=== PATIENT | female | born 1985 | race African-American/Black ===

== ENCOUNTER → 2016-10-30 | Outpatient (CLI) | payer OTHER ==
--- NOTE | 2016-10-30 10:46 | XR ---
EXAMINATION TYPE: XR elbow limited RT DATE OF EXAM: 10/30/2016 10:37 AM CLINICAL HISTORY: Right elbow pain for 3 days TECHNIQUE: Frontal and lateral images of the right elbow are obtained. COMPARISON: None FINDINGS: There is no acute fracture/dislocation evident in the right elbow. No abnormal fat pad si gns are seen. The overlying soft tissue appears unremarkable. IMPRESSION: Unremarkable study.
== END | disposition home or self-care (01) ==
LOC: RADXRMAIN 10:28
PROVIDERS: ATTEND Physician Assistant
DX: M25.521 Pain in right elbow (principal)

== ENCOUNTER → 2017-04-04 | Outpatient (CLI) | payer OTHER ==
--- NOTE | 2017-04-04 15:39 | US ---
EXAMINATION TYPE: US thyroid st tissue head/neck DATE OF EXAM: 04/04/2017 COMPARISON: Thyroid ultrasound December 23, 2015 CLINICAL HISTORY: E04.9 Goiter. Enlarged thyroid, left thyroidectomy GLAND SIZE: Right Lobe: 5.7 x 1.8 x 3.2 cm Overall Parenchyma: heterogenous Left Lobe: surgically removed Isthmus Thickness: 0.5 cm NODULES RIGHT: # of nodules measured on right: 0 LEFT: Surgically removed ISTHMUS: # of nodules measured in the isthmus: 0 Bilateral neck scanned, no evidence of lymphadenopathy. Enlarged heterogeneous right lobe with no distinct nodules seen on today's exam, left thyroidectomy, left thyroid bed appears wnl Heterogeneous enlarged right thyroid is redemonstrated. Left thyroid is surgically absent. No suspici ous new nodules are identified. IMPRESSION: Overall stable findings, heterogeneous enlarged remnant right thyroid. No suspicious new nodules seen .
== END | disposition home or self-care (01) ==
LOC: RADUSWWP 15:04
PROVIDERS: ATTEND Family Medicine
DX: E04.9 Nontoxic goiter, unspecified (principal)
CPT/HCPCS: 76536

== ENCOUNTER → 2018-09-25 | Outpatient (CLI) | payer BC, OTHER ==
--- NOTE | 2018-09-25 09:10 | US ---
EXAMINATION TYPE: US thyroid st tissue head/neck DATE OF EXAM: 09/25/2018 COMPARISON: US 04/04/17, 12/23/15 CLINICAL HISTORY: E04.1 Goiter Non Toxic. Patient feels pressure in neck. Difficulty swallowing. GLAND SIZE: Right Lobe: 5.7 x 2.9 x 2.1 cm Overall Parenchyma: heterogenous Left Lobe: Surgically absent cm Isthmus: 0.8 cm, Heterogeneous texture. NODULES RIGHT: # of nodules measured on right: 0 LEFT: # of nodules measured on left: 0 ISTHMUS: # of nodules measured in the isthmus: 0 Bilateral neck scanned, no evidence of lymphadenopathy. IMPRESSION: 1. Changes of left-sided thyroidectomy. 2. Enlargement and heterogeneity right thyroid lobe.
[2018-09-25 09:13] LABS: HCT 39.9 % (34.0-46.0); HGB 13.3 gm/dL (11.4-16.0); MCH 30.4 pg (25.0-35.0); MCHC 33.2 g/dL (31.0-37.0); MCV 91.4 fL (80.0-100.0); Mean Platelet Volume 8.2; Platelet Count 211 k/uL (150-450); RBC 4.37 m/uL (3.80-5.40); RDW 13.4 % (11.5-15.5); WBC 6.1 k/uL (3.8-10.6)
[2018-09-25 12:45] LABS: ALT 29 U/L (9-52); AST 17 U/L (14-36); Albumin 3.9 g/dL (3.5-5.0); Alkaline Phosphatase 48 U/L (38-126); Anion Gap 6 mmol/L; Blood Urea Nitrogen 12 mg/dL (7-17); Calcium 9.3 mg/dL (8.4-10.2); Carbon Dioxide 26 mmol/L (22-30); Chloride 109 mmol/L (98-107); Glucose 100 mg/dL (74-99); Potassium 4.5 mmol/L (3.5-5.1); Sodium 141 mmol/L (137-145); Total Bilirubin 0.3 mg/dL (0.2-1.3); Total Protein 6.9 g/dL (6.3-8.2)
[2018-09-25 20:51] LABS: ACTH 29.5 pg/mL (0.00-45.99)
== END | disposition home or self-care (01) ==
LOC: RADUSWWP 08:23
PROVIDERS: ATTEND Internal Medicine Endocrinology, Diabetes & Metabolism
DX: E04.1 Nontoxic single thyroid nodule (principal); R53.83 Other fatigue; Z90.89 Acquired absence of other organs
CPT/HCPCS: 36415; 76536; 80053; 82024; 82533; 82607; 84146; 84439; 84443; 84481; 85027

== ENCOUNTER → 2019-09-05 | Outpatient (CLI) | payer BC, OTHER ==
--- NOTE | 2019-09-05 15:08 | FL ---
EXAMINATION TYPE: FL hysterosalpingography DATE OF EXAM: 09/05/2019 HISTORY: Infertility. Abnormal menstrual cycles. TECHNIQUE: 10 cc of Isovue-370 was utilized. 48 seconds of fluoroscopy time was utilized with 6 image s saved. Informed consent was obtained and all the patient's questions were answered. Preprocedural timeout wa s performed. Preliminary film of the pelvis reveals no distinct abnormality. A speculum was introduc ed and the external cervical os was localize. The external cervical os was cleansed and a Betadine s olution on 3 occasions. Hysterosalpingography catheter was introduced into the uterus and balloon in sufflation device deployed. Approximately 10 cc of nonionic contrast was injected in a retrograde ma nner. The uterus has a normal size shape and appearance. No persistent uterine filling defects are seen. Both fallopian tubes fill with contrast normally. There is spill of contrast into the peritoneal cav ity bilaterally left greater than right. IMPRESSION: Normal hysterosalpingogram with bilateral spill of contrast into the peritoneal cavity.
== END ==
LOC: RADUSWWP 13:33
PROVIDERS: ATTEND Obstetrics & Gynecology Reproductive Endocrinology
DX: Z31.41 Encounter for fertility testing (principal)
CPT/HCPCS: 58340; 74740; Q9967

== ENCOUNTER 2019-10-26 18:07 | Observation (INO) | payer BC ==
[2019-10-26] MEDS ORDERED: SODIUM CHLORIDE 0.9% 1,000 ML IV STA (18:33)
--- NOTE | 2019-10-26 18:33 | ED ---
Chest Pain HPI - General Chief Complaint: Chest Pain Stated Complaint: CHEST PAIN Time Seen by Provider: 10/26/19 18:26 Source: patient, RN notes reviewed, old records reviewed Mode of arrival: wheelchair Limitations: no limitations - History of Present Illness Initial Comments: This is a 34-year-old female DF percent on for chest pain left side chest pain patient is holding her left side of her chest. Patient feels that she has heavy pressure sitting on her chest with shortness of breath. Symptoms a few hours prior to arrival nonpersistent. Patient has a strong family history of heart disease but she herself has no high blood pressure or cholesterol she does have a history of smoking. Otherwise no travel history or sick contacts and history of DVT or PE. No cough or congestion currently MD Complaint: chest pain -: hour(s) Onset: during rest, during exertion Pain Location: substernal, left chest Pain Radiation: LUE Severity: mild Severity scale (1-10): 3 Quality: aching, heaviness Consistency: constant Improves With: nothing Worsens With: nothing Anginal Symptoms: dyspnea Treatments Prior to Arrival: none - Related Data Home Medications Medication Instructions Recorded Confirmed ALPRAZolam [Xanax] 1 tab PO DIRECTED PRN 07/13/14 12/12/15 Hydrocodone/Acetaminophen [[place] 1 tab PO Q6HR PRN 12/12/15 12/12/15 7.5-325] Allergies Allergy/AdvReac Type Severity Reaction Status Date / Time latex Allergy Rash/Hives Verified 10/26/19 18:14 Review of Systems ROS Statement: Those systems with pertinent positive or pertinent negative responses have been documented in the HPI. ROS Other: All systems not noted in ROS Statement are negative. EKG Findings - EKG Comments: EKG Findings:: EKG shows sinus rhythm, NJ 170, QRS 80, QTC 418. Repeat. EKG shows sinus rhythm rate of 74, NJ 172, QRS 90, QTc 424 no change in morphology. Repeat. EKG shows sinus rhythm at 74, NJ 172, QRS 92, QTC 437 Past Medical History Past Medical History: Asthma, Thyroid Disorder Additional Past Medical History / Comment(s): MISSED , back pain, knee pain History of Any Multi-Drug Resistant Organisms: None Reported Past Surgical History: Section, Orthopedic Surgery Additional Past Surgical History / Comment(s): right knee, thryoidectomy Past Anesthesia/Blood Transfusion Reactions: Motion Sickness Past Psychological History: Anxiety Smoking Status: Current every day smoker Past Alcohol Use History: None Reported Past Drug Use History: None Reported General Exam Limitations: no limitations General appearance: alert, in no apparent distress Head exam: Present: atraumatic, normocephalic, normal inspection Eye exam: Present: normal appearance, PERRL, EOMI. Absent: scleral icterus, conjunctival injection, periorbital swelling ENT exam: Present: normal exam, mucous membranes moist Neck exam: Present: normal inspection. Absent: tenderness, meningismus, lymphadenopathy Respiratory exam: Present: normal lung sounds bilaterally. Absent: respiratory distress, wheezes, rales, rhonchi, stridor Cardiovascular Exam: Present: regular rate, normal rhythm, normal heart sounds. Absent: systolic murmur, diastolic murmur, rubs, gallop, clicks GI/Abdominal exam: Present: soft, normal bowel sounds. Absent: distended, tenderness, guarding, rebound, rigid Extremities exam: Present: normal inspection, full ROM, normal capillary refill. Absent: tenderness, pedal edema, joint swelling, calf tenderness Back exam: Present: normal inspection Neurological exam: Present: alert, oriented X3, CN II-XII intact Psychiatric exam: Present: normal affect, normal mood Skin exam: Present: warm, dry, intact, normal color. Absent: rash Course Vital Signs 10/26/19 18:11 Temperature 97.8 F Pulse Rate 97 Respiratory 18 Rate Blood Pressure 166/90 O2 Sat by Pulse 96 Oximetry - Reevaluation(s) Reevaluation #1: 10/26/19 20:35 Medical record review of Reevaluation #2: 10/26/19 20:35 Chest pain is persisting here in the ER - Consultations Consultation #1: Dr. Lucero who is agreeable for admission Chest Pain MDM - MDM 34 female here for evaluation of typical chest pain left-sided chest pain with heaviness. Patient suffers from morbid obesity and smoking no other known cardiac risk factors aside from family history. Patient be admitted for cardiac observation Disposition Clinical Impression: Chest pain Disposition: ADMITTED IP TO THIS HOSP Condition: Undetermined Instructions (If sedation given, give patient instructions): Chest Pain (ED) Is patient prescribed a controlled substance at d/c from ED?: No Referrals: Eugene Lucero MD [Primary Care Provider] - 1-2 days
[2019-10-26 18:57] LABS: Basophils # (A) 0.1 k/uL (0-0.2); Basophils % (A) 1 %; Eosinophils # (A) 0.3 k/uL (0-0.7); Eosinophils % (A) 4 %; HCT 40.2 % (34.0-46.0); Lymphocytes # (A) 2.8 k/uL (1.0-4.8); Lymphocytes % (A) 35 %; MCH 29.5 pg (25.0-35.0); MCHC 32.3 g/dL (31.0-37.0); MCV 91.5 fL (80.0-100.0); Mean Platelet Volume 8.9; Monocytes # (A) 0.3 k/uL (0-1.0); Monocytes % (A) 4 %; Neutrophils # (A) 4.4 k/uL (1.3-7.7); Neutrophils % (A) 55 %; Platelet Count 202 k/uL (150-450); RBC 4.39 m/uL (3.80-5.40)
[2019-10-26 19:04] LABS: Albumin 4.7 g/dL (3.5-5.0); Calcium 10.1 mg/dL (8.4-10.2); Magnesium 1.9 mg/dL (1.6-2.3); Total Bilirubin 0.5 mg/dL (0.2-1.3)
[2019-10-26 19:13] LABS: D-Dimer 0.27 mg/L FEU (<0.60)
--- NOTE | 2019-10-26 19:27 | XR ---
EXAMINATION TYPE: XR chest 2V DATE OF EXAM: 10/26/2019 COMPARISON: 12/05/2016 INDICATION: Chest pain TECHNIQUE: Frontal and lateral views of the chest are obtained. FINDINGS: The heart size is normal. The pulmonary vasculature is normal. The lungs are clear. IMPRESSION: 1. No acute pulmonary process.
[2019-10-26] MEDS ORDERED: NITROGLYCERIN SL TABS 0.4 MG TAB SUBLINGUAL PRN (20:27)
[2019-10-26] MEDS ORDERED: HEPARIN SODIUM,PORCINE 5,000 UNIT/ML 1 ML VIAL IV ONE (20:27)
[2019-10-26] MEDS ORDERED: HEPARIN SODIUM,PORCINE 5,000 UNIT/ML 1 ML VIAL IV PRN (20:27)
[2019-10-26] MEDS ORDERED: ASPIRIN 81 MG PO STA (20:27)
[2019-10-26] MEDS ORDERED: HEPARIN SOD,PORK IN 0.45% NACL 25,000 UNIT in 0.45% NACL 1 250ML.BAG IV SCH (20:30)
[2019-10-26 21:52] VITALS: RESP 18
[2019-10-26] MEDS: MORPHINE SULFATE 4 MG/ML SYRINGE IVP PRN (22:28)
[2019-10-27] MEDS: MORPHINE SULFATE 4 MG/ML SYRINGE IVP PRN ×2 (03:29→09:24)
[2019-10-27 07:01] LABS: Mean Platelet Volume 9.3; Platelet Count 207 k/uL (150-450)
[2019-10-27 07:18] LABS: Cholesterol 202 mg/dL (<200); HDL Cholesterol 41 mg/dL (40-60); LDL Cholesterol,Calculated 117 mg/dL (0-99); Triglycerides 222 mg/dL (<150)
[2019-10-27] MEDS ORDERED: ASPIRIN 325 MG TAB PO SCH (09:00)
[2019-10-27] MEDS ORDERED: ONDANSETRON 4 MG/2 ML VIAL IVP PRN (09:22)
[2019-10-27] MEDS ORDERED: KETOROLAC 30 MG/ML 1 ML VIAL IVP STA (10:32)
--- NOTE | 2019-10-27 11:50 | P.CRDCN ---
History of Present Illness History of present illness: HISTORY OF PRESENTING ILLNESS This is a pleasant 34-year-old male past medical history significant for asthma, chronic nicotine dependence and obesity. 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 We have been asked to see in consultation for chest pain. She states for the last week or so she has been experiencing upper respiratory congestion and cough. She worked yesterday without difficulty or chest pain. After getting home from work she developed an intense pain in the left precordial region described as an excrutiating tightness. There was no radiation to the arm, back, neck or jaw. She denies associated shortness of breath, dizziness, palpitations, nausea, vomiting or diaphoresis. She states the pain was so intense she felt like she was going to pass out. She was given morphine that did relieve her pain initially however the pain came back. She is having ongoing, reproducible pain at the time of my exam. DIAGNOSTICS EKG reveals sinus mechanism with no acute ST or T-wave abnormalities. Chest xray negative for an acute process. Laboratory reviewed, CBC unremarkable, d-dimer 0.27, sodium 140, potassium 4.0, creatinine 0.98, magnesium 1.9, cardiac enzymes negative x3, NTproBNP less than 11, LDL 117. She takes no daily cardiac medications. REVIEW OF SYSTEMS At the time of my exam: CONSTITUTIONAL: Denies fever or chills. CARDIOVASCULAR: Complains of pleuritic chest pain. Denies shortness of breath, orthopnea, PND or palpitations. RESPIRATORY: Denies cough. GASTROINTESTINAL: Denies abdominal pain, diarrhea, constipation, nausea or vomiting. MUSCULOSKELETAL: Denies myalgias. NEUROLOGIC: Denies numbness, tingling or weakness. ENDOCRINE: Denies fatigue, weight change, polydipsia or polyurina. GENITOURINARY: Denies burning, hematuria or urgency with micturation. HEMATOLOGIC: Denies history of anemia or bleeding. PHYSICAL EXAMINATION Blood pressure 128/67 heart rate 60 afebrile and maintaining oxygen saturation on room air. CONSTITUTIONAL: No apparent distress. Obese. HEENT: Head is normocephalic. Pupils are equal, round. Sclerae anicteric. Mucous membranes of the mouth are moist. No JVD. No carotid bruit. CHEST EXAMINATION: Lungs are clear to auscultation. No chest wall tenderness is noted on palpation or with deep breathing. HEART EXAMINATION: Regular rate and rhythm. S1, S2 heard. Faint systolic e jection murmur at the base, no gallops or rub. ABDOMEN: Soft, nontender. Positive bowel sounds. EXTREMITIES: 2+ peripheral pulses, no lower extremity edema and no calf tenderness. NEUROLOGIC EXAMINATION: Patient is awake, alert and oriented x3. ASSESSMENT Chest pain, atypical. An acute event has been ruled out. Chronic nicotine dependence Obese, BMI 36 PLAN An acute coronary event has been ruled out. Give one dose of toradol 30 mg IV now. Obtain 2D echocardiogram and doppler study to assess cardiac structure and function. Perform stress echocardiogram and doppler study to assess for stress induced ischemia. If stress test is normal she is stable from a cardiac perspective. Smoking cessation recommend and lifestyle modifications for lowering of LDL cholesterol to include diet and exercise. Thank you kindly for this consultation. Nurse Practitioner note has been reviewed, I agree with a documented findings and plan of care. Patient was seen and examined. Past Medical History Past Medical History: Asthma, Thyroid Disorder Additional Past Medical History / Comment(s): [place], back pain, knee pain History of Any Multi-Drug Resistant Organisms: None Reported Past Surgical History: Section, Orthopedic Surgery Additional Past Surgical History / Comment(s): right knee, thryoidectomy Past Anesthesia/Blood Transfusion Reactions: Motion Sickness Smoking Status: Current every day smoker - Past Family History Mother Family Medical History: Asthma Father Family Medical History: Unable to Obtain Medications and Allergies Home Medications Medication Instructions Recorded Confirmed Type Aspirin EC [Ecotrin Low Dose] 162 mg PO ONCE PRN 10/27/19 10/27/19 History Allergies Allergy/AdvReac Type Severity Reaction Status Date / Time latex Allergy Rash/Hives Verified 10/27/19 08:12 Physical Exam Vitals: Vital Signs Temp Pulse Pulse Resp BP BP Pulse Ox 10/27/19 07:52 97.7 F 60 18 128/67 100 10/27/19 04:00 97.7 F 75 18 138/74 98 10/27/19 03:49 18 10/26/19 23:44 97.8 F 87 18 138/71 96 10/26/19 23:25 18 10/26/19 21:51 98.1 F 84 18 152/84 95 10/26/19 21:10 141/88 10/26/19 20:59 82 16 150/93 96 10/26/19 18:11 97.8 F 97 18 166/90 96 Intake and Output 10/26/19 10/27/19 10/27/19 22:59 06:59 14:59 Intake Total 68.356 Balance 68.356 Intake: Intake, IV Titration 68.356 Amount Heparin Sod,Pork in 0.45% 68.356 NaCl 25,000 unit In 0.45 % NaCl 1 250ml.bag @ 8.8 UNITS/KG/HR 9.979 mls/hr IV .Q24H [facility] Rx#: [id number] Other: # Voids 1 Weight 113.398 kg Results 10/27/19 06:38 10/26/19 18:24 Cardiac Enzymes 10/26/19 10/26/19 10/27/19 Range/Units 18:24 18:24 00:51 AST 29 (14-36) U/L Troponin I <0.012 <0.012 (0.000-0.034) ng/mL 10/27/19 Range/Units 06:38 AST (14-36) U/L Troponin I <0.012 (0.000-0.034) ng/mL Coagulation 10/26/19 10/27/19 Range/Units 18:24 03:29 PT 11.0 (9.0-12.0) sec APTT 27.0 31.0 H (22.0-30.0) sec Lipids 10/27/19 Range/Units 06:38 Triglycerides 222 H (<150) mg/dL Cholesterol 202 H (<200) mg/dL HDL Cholesterol 41 (40-60) mg/dL CBC 10/26/19 10/27/19 Range/Units 18:24 06:38 WBC 8.0 (3.8-10.6) k/uL RBC 4.39 (3.80-5.40) m/uL Hgb 13.0 (11.4-16.0) gm/dL Hct 40.2 (34.0-46.0) % Plt Count 202 207 (150-450) k/uL Comprehensive Metabolic Panel 10/26/19 Range/Units 18:24 Sodium 140 (137-145) mmol/L Potassium 4.0 (3.5-5.1) mmol/L Chloride 105 (98-107) mmol/L Carbon Dioxide 25 (22-30) mmol/L BUN 13 (7-17) mg/dL Creatinine 0.98 (0.52-1.04) mg/dL Glucose 94 (74-99) mg/dL Calcium 10.1 (8.4-10.2) mg/dL AST 29 (14-36) U/L ALT 21 (4-34) U/L Alkaline Phosphatase 67 (38-126) U/L Total Protein 8.0 (6.3-8.2) g/dL Albumin 4.7 (3.5-5.0) g/dL Current Medications Generic Name Dose Route Start Last Admin Trade Name Freq PRN Reason Stop Dose Admin Aspirin 325 mg 10/27/19 09:00 Aspirin PO DAILY [facility] Heparin Sodium (Porcine) 0 unit 10/26/19 20:27 Heparin IV Q6HR PRN Low PTT Protocol Morphine Sulfate 4 mg 10/26/19 22:22 10/27/19 03:29 Morphine Sulfate (Inj) IVP 4 mg Q4HR PRN Administration Pain Nitroglycerin 0.4 mg 10/26/19 20:27 Nitrostat SUBLINGUAL Q5M PRN Chest Pain Intake and Output 10/26/19 10/27/19 10/27/19 22:59 06:59 14:59 Intake Total 68.356 Balance 68.356 Intake: Intake, IV Titration 68.356 Amount Heparin Sod,Pork in 0.45% 68.356 NaCl 25,000 unit In 0.45 % NaCl 1 250ml.bag @ 8.8 UNITS/KG/HR 9.979 mls/hr IV .Q24H [facility] Rx#: [id number] Other: # Voids 1 Weight 113.398 kg 10/27/19 06:38 10/26/19 18:24
--- NOTE | 2019-10-27 12:12 | ECHOF ---
Referral Reason:cp MEASUREMENTS -------- HEIGHT: 175.3 cm WEIGHT: 113.4 kg BP: 120/60 RVIDd: 3.2 cm (< 3.3) IVSd: 1.7 cm (0.6 - 1.1) LVIDd: 3.8 cm (3.9 - 5.3) LVPWd: 2.0 cm (0.6 - 1.1) IVSs: 2.6 cm LVIDs: 1.4 cm LVPWs: 2.6 cm Ao Diam: 2.8 cm (2.0 - 3.7) AV Cusp: 2.1 cm (1.5 - 2.6) LA Diam: 4.0 cm (2.7 - 3.8) MV EXCURSION: 15.279 mm (> 18.000) MV EF SLOPE: 71 mm/s (70 - 150) EPSS: 0.4 cm MV E Naresh: 1.11 m/s MV DecT: 203 ms MV A Naresh: 0.61 m/s MV E/A Ratio: 1.82 RAP: 5.00 mmHg RVSP: 48.73 mmHg FINDINGS -------- Sinus rhythm. This was a technically difficult study with suboptimal apical views. The left ventricular size is normal. There is severe concentric left ventricular hypertrophy. The re is normal global left ventricular contractility. Overall left ventricular systolic function is n ormal with, an EF between 65 - 70 %. The diastolic filling pattern is normal for the age of the pat ient 11.34. The right ventricle is normal in size. The left atrium is mildly dilated. The right atrial size is normal. Interatrial and interventricular septum intact. The aortic valve is trileaflet and appears structurally normal. There is no evidence of aortic regu rgitation. There is no evidence of aortic stenosis. There is trace mitral regurgitation. Khol-ea-[id number] tricuspid regurgitation present. There is mild to moderate pulmonary hypertension. The right ventricular systolic pressure, as measured by Doppler, is 48.73mmHg. Trace/mild (physiologic) pulmonic regurgitation. The aortic root size is normal. IVC Not well visulized. There is no pericardial effusion. CONCLUSIONS -------- 1. Sinus rhythm. 2. This was a technically difficult study with suboptimal apical views. 3. The left ventricular size is normal. 4. There is severe concentric left ventricular hypertrophy. 5. There is normal global left ventricular contractility. 6. Overall left ventricular systolic function is normal with, an EF between 65 - 70 %. 7. The diastolic filling pattern is normal for the age of the patient 11.34 8. The right ventricle is normal in size. 9. The left atrium is mildly dilated. 10. The right atrial size is normal. 11. Interatrial and interventricular septum intact. 12. The aortic valve is trileaflet and appears structurally normal. 13. There is no evidence of aortic regurgitation. 14. There is no evidence of aortic stenosis. 15. There is trace mitral regurgitation. 16. Tbqt-zq-avpvlkjf tricuspid regurgitation present. 17. There is mild to moderate pulmonary hypertension. 18. The right ventricular systolic pressure, as measured by Doppler, is 48.73mmHg. 19. Trace/mild (physiologic) pulmonic regurgitation. 20. The aortic root size is normal. 21. IVC Not well visulized. 22. There is no pericardial effusion. [employer] QUALITY TECHNICIAN: Opal Guillermo RDCS
[2019-10-27 12:20] LABS: T4, Free (Free Thyroxine) 0.94 ng/dL (0.78-2.19)
[2019-10-27 12:35] VITALS: BP 138/85; PULSE 78; TEMP 97.9
--- NOTE | 2019-10-27 14:15 | ECHOS ---
STRESS ECHOCARDIOGRAM INDICATIONS: Chest pain. MEDICATIONS: None. BASELINE HEART RATE: 73 BASELINE BLOOD PRESSURE: 113/58 MAXIMUM HEART RATE: 159 MAXIMUM BLOOD PRESSURE: 191/78 85% MPHR: 156 100% MPHR: 184 METS: 9.3 MAXIMUM STAGE REACHED: 3 TOTAL EXERCISE TIME: 7:45 CLINICAL INFORMATION: Patient was exercised for a total period of 8 minutes. The peak heart rate of 159 was achieved. Maximum blood pressure of 191/78 mmHg was noted. Resting EKG shows normal sinus rhythm with normal AK interval and QRS duration and normal ST-T waves. No ST- segment depression suggestive of ischemia is noted. The baseline echocardiographic images reveals normal left ventricular chamber size with normal left ventricular systolic function in the immediate postexercise period. Normal increase in the wall thickness and contractility is noted. FINAL IMPRESSION: This stress echocardiographic study is negative for stress-induced ischemia. EKG portion of the stress test is not suggestive of ischemia. Patient's exercise tolerance is normal. MMODL / IJN: [id number] /
--- NOTE | 2019-10-28 15:50 | P.HPIM ---
History of Present Illness H&P Date: 10/27/19 HISTORY AND PHYSICAL AND DISCHARGE SUMMARY: This is a 34-year-old -I[place]ian female patient of Dr. Lucero is followed in at least 3 years. She has a past medical history significant for thyroid disorder, mild stable asthma not on medications, generalized anxiety disorder, tobacco use and dependence. The patient has history of developing a cramping in the left side of her chest laterally that was a pulsating feeling that continued to get tighter. She states it occurred while she was working at a [employer]. She also had pain in her shoulder blade and back area. She states the pain was so severe that she thought she was lacking out. She told her boyfriend give her baby aspirin which she took. Patient came into [facility] emergency center for evaluation. Troponins were negative. Triglycerides 222, cholesterol 202, LDL 117, HDL 41. TSH 0.109, free T4 0.94. Patient was placed on the observation unit and seen in consultation by cardiology. Stress echocardiogram which was negative and patient was cleared for discharge home. Review of Systems Constitutional: Denies chills, Denies fatigue, Denies fever, Denies lethargy, Denies malaise, Denies poor appetite, Denies weakness Eyes: denies blurred vision, denies pain Ears, nose, mouth and throat: Denies dysphagia, Denies headache, Denies nasal congestion, Denies nasal discharge, Denies sore throat, Denies vertigo Cardiovascular: Reports chest pain, Denies dyspnea on exertion, Denies lightheadedness, Denies palpitations, Denies shortness of breath, Denies syncope Respiratory: Denies cough, Denies cough with sputum, Denies dyspnea, Denies excessive sputum, Denies hemoptysis, Denies home oxygen, Denies respiratory infections, Denies wheezing Gastrointestinal: Denies abdominal pain, Denies diarrhea, Denies loss of appetite, Denies nausea, Denies vomiting Genitourinary: Denies difficulty voiding, Denies dysuria, Denies hematuria, Denies urgency, Denies urinary frequency Musculoskeletal: Denies frequent falls, Denies gait dysfunction, Denies muscle weakness, Denies myalgias Integumentary: Denies pruritus, Denies rash, Denies wounds Neurological: Denies change in mentation, Denies change in speech, Denies numbness, Denies weakness Psychiatric: Denies anxiety, Denies depression Endocrine: Denies fatigue, Denies weight change Past Medical History Past Medical History: Asthma, Thyroid Disorder Additional Past Medical History / Comment(s): miscarrage, back pain, knee pain History of Any Multi-Drug Resistant Organisms: None Reported Past Surgical History: Section, Orthopedic Surgery Additional Past Surgical History / Comment(s): right knee, thryoidectomy Past Anesthesia/Blood Transfusion Reactions: Motion Sickness Smoking Status: Current every day smoker Additional Past Alcohol Use History / Comment(s): Patient is a smoker of one half pack per day. She denies any marijuana, illicit drug use, alcohol abuse. - Past Family History Mother Family Medical History: Asthma Additional Family Medical History / Comment(s): Mother is alive at age 57 with history of a heart murmur. Father Family Medical History: Unable to Obtain Additional Family Medical History / Comment(s): Patient does not know anything about her father. Brother(s) Additional Family Medical History / Comment(s): Patient has 3 brothers and one brother has sickle cell trait. Patient does not have any sisters. Patient has 1 son 10 years old with no major medical problems. Medications and Allergies Home Medications Medication Instructions Recorded Confirmed Type Aspirin EC [Ecotrin Low Dose] 162 mg PO ONCE PRN 10/27/19 10/27/19 History Atorvastatin Calcium [Lipitor] 20 mg PO HS #30 tab 10/27/19 Rx Allergies Allergy/AdvReac Type Severity Reaction Status Date / Time latex Allergy Rash/Hives Verified 10/27/19 08:12 Physical Exam Vitals: Vital Signs Temp Pulse Pulse Resp BP BP Pulse Ox 10/27/19 07:52 97.7 F 60 18 128/67 100 10/27/19 04:00 97.7 F 75 18 138/74 98 10/27/19 03:49 18 10/26/19 23:44 97.8 F 87 18 138/71 96 10/26/19 23:25 18 10/26/19 21:51 98.1 F 84 18 152/84 95 10/26/19 21:10 141/88 10/26/19 20:59 82 16 150/93 96 10/26/19 18:11 97.8 F 97 18 166/90 96 Intake and Output 10/26/19 10/27/19 10/27/19 22:59 06:59 14:59 Intake Total 68.356 Balance 68.356 Intake: Intake, IV Titration 68.356 Amount Heparin Sod,Pork in 0.45% 68.356 NaCl 25,000 unit In 0.45 % NaCl 1 250ml.bag @ 8.8 UNITS/KG/HR 9.979 mls/hr IV .Q24H SURESH Rx#: [id number] Other: # Voids 1 Weight 113.398 kg Gen: This is a 34-year-old morbidly obese -Ivorian female. Patient is in bed and appears to be comfortable and in no acute distress. HEENT: Head is atraumatic, normocephalic. Pupils equal, round. Sclerae is anicteric. NECK: Supple. No JVD. No lymphadenopathy. No thyromegaly. LUNGS: Clear to auscultation. No wheezes or rhonchi. No intercostal retractions. HEART: Regular rate and rhythm. No murmur. ABDOMEN: Soft. Bowel sounds are present. No masses. No tenderness. EXTREMITIES: No pedal edema. No calf tenderness. Dorsalis pedis +2 bilaterally. NEUROLOGICAL: Patient is awake, alert and oriented x3. Cranial nerves 2 through 12 are grossly intact. Results CBC & Chem 7: 10/27/19 06:38 10/26/19 18:24 Labs: Abnormal Lab Results - Last 24 Hours (Table) 10/27/19 10/27/19 Range/Units 03:29 06:38 APTT 31.0 H (22.0-30.0) sec Triglycerides 222 H (<150) mg/dL Cholesterol 202 H (<200) mg/dL LDL Cholesterol, Calc 117 H (0-99) mg/dL Assessment and Plan Plan: 1. Chest pain, acute coronary syndrome ruled out. 2. History of mild stable asthma. 3. History of hypothyroidism. 4. Tobacco use and dependence. 5. Dyslipidemia. Patient started on Lipitor Patient placed on the observation unit. Discharge plan: home Impression and plan of care have been directed as dictated by the signing physician. Audra Godoy nurse practitioner acting as scribe for signing physician.
== END 2019-10-27 14:39 | disposition home or self-care (01) ==
LOC: EC 18:07 → 1SOBS 20:27
PROVIDERS: ADMIT Internal Medicine; ATTEND Internal Medicine
DX: R07.89 Other chest pain (principal); R06.02 Shortness of breath; F17.200 Nicotine dependence, unspecified, uncomplicated; E66.9 Obesity, unspecified; Z68.36 Body mass index [BMI] 36.0-36.9, adult; E78.5 Hyperlipidemia, unspecified; J45.20 Mild intermittent asthma, uncomplicated; E89.0 Postprocedural hypothyroidism; F41.9 Anxiety disorder, unspecified; Z82.49 Family history of ischemic heart disease and other diseases of the circulatory system; Z83.2 Family history of diseases of the blood and blood-forming organs and certain disorders involving the immune mechanism; Z79.891 Long term (current) use of opiate analgesic; Z79.899 Other long term (current) drug therapy; Z91.040 Latex allergy status
CPT/HCPCS: 96366 ×2; 96375 ×2; 96376 ×2; 96361; 96365; 99285; 36415; 93005; 93306; 93351; 85379; 84439; 83880; 80061; 80053; 84443; 83690; 83735; 84484 ×2; 85025; 85049; 85610; 85730 ×2; 71046; G0378 ×2; J2270 ×2; J1644 ×2; J2405; J1885

== ENCOUNTER → 2020-09-30 | Outpatient (CLI) | payer BC ==
[2020-09-30 14:45] VITALS: BP 152/96; PULSE 99; TEMP 98.1; BMI 45.9
--- NOTE | 2020-09-30 16:27 | P.HPBAR ---
Bariatric H&P - History & Physicial H&P Date: 09/30/20 History & Physicial: Visit/CC: initial clinic visit Patient initial contact: Initial weight: Initial weight in pounds: Height: 5 ft 9 in Initial BMI: Last weight: Current weight: 141.067 kg Current weight in pounds: 311.00 Current BMI: 45.9 [place] body weight (based on NIH guidelines): 65.771 kg Excess body weight loss: The patient is a 34 year-old F who presents for Bariatric Assessment. Patient presents today to discuss bariatric surgery. She is interested in sleeve gastrectomy. Patient was BMI of 45.9. Has suffered with her obesity for many years. Patient suffers from chronic reflux, sleep apnea, hypothyroidism. Previous surgical history includes knee D&C thyroid. No history of DVT or dysphagia in the past. Patient does admit to daily tobacco use. 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 Review of Systems The patient denies any acute changes in vision or hearing, no dysphagia or odynophagia, no chest pain or shortness of breath, no dysuria or hematuria, no headache, no runny nose, no rectal bleeding or melena, no unexplained weight loss Past Medical History Past Medical History: Asthma, Thyroid Disorder Additional Past Medical History / Comment(s): miscarrage, back pain, knee pain History of Any Multi-Drug Resistant Organisms: None Reported Past Surgical History: Section, Orthopedic Surgery Additional Past Surgical History / Comment(s): right knee, thryoidectomy Past Anesthesia/Blood Transfusion Reactions: Motion Sickness Past Psychological History: Anxiety Smoking Status: Current every day smoker Past Alcohol Use History: None Reported Additional Past Alcohol Use History / Comment(s): Patient is a smoker of one half pack per day. She denies any marijuana, illicit drug use, alcohol abuse. Past Drug Use History: None Reported - Past Family History Mother Family Medical History: Asthma Additional Family Medical History / Comment(s): Mother is alive at age 57 with history of a heart murmur. Father Family Medical History: Unable to Obtain Additional Family Medical History / Comment(s): Patient does not know anything about her father. Brother(s) Additional Family Medical History / Comment(s): Patient has 3 brothers and one brother has sickle cell trait. Patient does not have any sisters. Patient has 1 son 10 years old with no major medical problems. Surgical - Exam Vital Signs Temp Pulse BP 98.1 F 99 152/96 09/30/20 14:42 09/30/20 14:42 09/30/20 14:42 Physical exam: General: Well-developed, well-nourished HEENT: Normocephalic, sclerae nonicteric Abdomen: Nontender, nondistended Extremities: No edema Neuro: Alert and oriented Bariatric Assessment & Plan (1) Morbid obesity with BMI of 45.0-49.9, adult Narrative/Plan: 34 yo female with morbid obesity. Surgical and nonsurgical options discussed in detail. Patient understands that she will need to stop smoking before surgery. Will plan upper endoscopy 4-5 months from now. Patient will follow-up with me after her EGD to review the surgical consent form after that. Await supervised weight loss documentation from primary care physician. Risks and benefits of the surgical options reviewed along with the average expected weight loss. Patient understands and wishes to proceed. Status: Acute Bariatric Checklist Checklist: Plan: Checklist: EGD: 1. Hiatal hernia: 2. H. Pylori: HgbA1c: Vitamin D: Smoking: Current every day smoker Primary care physician referral: Psychiatry clearance: Cardiology clearance: Sleep study: Diet journal: VTE risk score: VTE risk level: Rehab needs at discharge:
== END | disposition home or self-care (01) ==
LOC: BARWHC3 13:51
PROVIDERS: ATTEND Surgery
DX: E66.01 Morbid (severe) obesity due to excess calories (principal); Z68.42 Body mass index [BMI] 45.0-49.9, adult
CPT/HCPCS: 99211

== ENCOUNTER → 2020-12-15 | Outpatient (CLI) | payer BC ==
[2020-12-16 03:25] LABS: African American GFR (CKD) 83.3 (60.0-200.0); Albumin 4.4 g/dL (3.80-4.90); Albumin/Globulin Ratio 1.63 (1.60-3.17); Anion Gap 8.4 mmol/L (4.00-12.00); Calcium 10.2 mg/dL (8.7-10.3); Carbon Dioxide 24.6 mmol/L (21.6-31.8); Globulin 2.7 g/dL (1.6-3.3); Non-African American GFR(CKD) 71.9 (60.0-200.0); Potassium 4.1 mmol/L (3.5-5.5); Total Bilirubin 0.4 mg/dL (0.3-1.2); Total Protein 7.1 g/dL (6.2-8.2)
[2020-12-16 03:45] LABS: Folate, Serum 11.6 ng/mL
[2020-12-16 04:40] LABS: HCT 41.8 % (37.2-46.3); HGB 13.6 g/dL (12.0-15.0); MCH 30.5 pg (27.0-32.0); MCHC 32.5 g/dL (32.0-37.0); MCV 93.7 fL (80.0-97.0); Mean Platelet Volume 13.3 fL (9.5-12.2); Platelet Count 218 X 10*3/uL (140-440); RBC 4.46 X 10*6/uL (4.10-5.20); RDW 12.8 % (11.5-14.5); WBC 7.66 X 10*3/uL (4.50-10.00)
[2020-12-16 08:15] LABS: Hemoglobin A1C 5.6 % (4.0-6.0)
== END ==
LOC: LABWHC1 15:51
PROVIDERS: ATTEND Surgery
DX: E55.9 Vitamin D deficiency, unspecified (principal); K90.89 Other intestinal malabsorption; E66.01 Morbid (severe) obesity due to excess calories
CPT/HCPCS: 36415; 80053; 82306; 82607; 82746; 83036; 83540; 84425; 85027; 93005

== ENCOUNTER 2021-03-29 09:33 | Day surgery (SDC) | payer BC ==
[2021-03-28 08:42] VITALS: BMI 38.4
[~2021-03-29 09:33] MED LIST: LACTATED RINGERS 1,000 ML IV SCH; LIDOCAINE 1% (10MG/ML) FOR IV START INTRADERMA PRN
[2021-03-29 10:33] VITALS: TEMP 97.8
[2021-03-29] MEDS ORDERED: PROPOFOL 10 MG/ML 20 ML VIAL IV ONE (10:53)
[2021-03-29] MEDS ORDERED: KETAMINE 10 MG/ML 20 ML VIAL ONE (10:53)
--- NOTE | 2021-03-29 10:56 | P.GSHP ---
History of Present Illness H&P Date: 03/29/21 Chief Complaint: GERD, presurgical Patient here today for upper endoscopy. Patient with chronic reflux. Being evaluated for sleeve gastrectomy. No dysphagia. Past Medical History Past Medical History: Asthma, Chest Pain / Angina, Hypertension, Osteoarthritis (OA), Sleep Apnea/CPAP/BIPAP, Thyroid Disorder Additional Past Medical History / Comment(s): Chronic back and knee pain, uses CPAP. History of Any Multi-Drug Resistant Organisms: None Reported Past Surgical History: Section, Orthopedic Surgery Additional Past Surgical History / Comment(s): Right knee surgery, thryoidectomy, D&C. Past Anesthesia/Blood Transfusion Reactions: Motion Sickness, Postoperative Nausea & Vomiting (PONV) Past Psychological History: Anxiety Smoking Status: Current some day smoker Past Alcohol Use History: None Reported Past Drug Use History: None Reported - Past Family History Mother Family Medical History: Asthma Additional Family Medical History / Comment(s): History of a heart murmur. Father Family Medical History: Unable to Obtain Additional Family Medical History / Comment(s): Patient does not know anything about her father. Brother(s) Additional Family Medical History / Comment(s): Patient has 3 brothers and one brother has sickle cell trait. Patient does not have any sisters. Patient has 1 son with no major medical problems. Medications and Allergies Home Medications Medication Instructions Recorded Confirmed Type Gabapentin 600 mg PO BID 03/11/21 03/29/21 History Ergocalciferol [Vitamin D2 (1250 1,250 mcg PO TU 03/28/21 03/28/21 History Mcg = [id number] Iu)] Varenicline Tartrate [Chantix 1 mg PO DIRECTED 03/28/21 03/29/21 History Continuing Pack] Allergies Allergy/AdvReac Type Severity Reaction Status Date / Time latex Allergy Rash/Hives Verified 03/29/21 10:06 artificial sweeteners Allergy Unknown Unknown Uncoded 03/29/21 10:06 Surgical - Exam Vital Signs Temp Pulse Resp BP Pulse Ox 97.8 F 67 18 107/70 98 03/29/21 10:19 03/29/21 10:19 03/29/21 10:19 03/29/21 10:19 03/29/21 10:19 Physical exam: General: Well-developed, well-nourished HEENT: Normocephalic, sclerae nonicteric Abdomen: Nontender, nondistended Extremities: No edema Neuro: Alert and oriented Assessment and Plan (1) GERD (gastroesophageal reflux disease) Narrative/Plan: Will proceed with upper endoscopy Current Visit: Yes Status: Acute Code(s): K21.9 - GASTRO-ESOPHAGEAL REFLUX DISEASE WITHOUT ESOPHAGITIS SNOMED Code(s): 773266728
--- NOTE | 2021-03-29 11:07 | P.PCN ---
Date of Procedure: 03/29/21 Procedure(s) Performed: Preoperative Dx: GERD Postoperative Dx: Mild gastritis Procedure: EGD with Bx Anesthesia: Sedation Endoscopist: Dr. Londono Specimens: Antrum Endoscopic Procedure: The patient was on the endoscopy table in the left decubitus position. The Olympus gastroscope was inserted into the oropharynx and passed under direct visualization to the region of the third portion of the duodenum. From that point the scope was slowly withdrawn inspecting all surfaces carefully. There were no neoplastic inflammatory or polypoid lesions throughout the duodenum. The pylorus was widely patent. The stomach was carefully inspected. There was mild gastritis present. A biopsy of the antrum took place to rule out H. pylori. Retroflexion revealed a normal hiatus. The esophagus was then carefully examined. There were no neoplastic inflammatory or polypoid lesions throughout the visualized esophagus. The patient was then taken to the recovery room in stable condition per anesthesia guidelines. Recommendations: Resume diet. Await biopsy results. Follow-up bariatric clinic.
[2021-03-29 11:16] VITALS: RESP 16
[2021-03-29 11:24] VITALS: BP 133/68; PULSE 72
== END 2021-03-29 11:40 | disposition home or self-care (01) ==
LOC: ORWHC2ENDO 09:33
PROVIDERS: ATTEND Surgery
DX: K21.9 Gastro-esophageal reflux disease without esophagitis (principal); K29.50 Unspecified chronic gastritis without bleeding; J45.909 Unspecified asthma, uncomplicated; M19.90 Unspecified osteoarthritis, unspecified site; G89.29 Other chronic pain; M54.9 Dorsalgia, unspecified; M25.569 Pain in unspecified knee; F41.9 Anxiety disorder, unspecified; Z88.5 Allergy status to narcotic agent; Z88.0 Allergy status to penicillin; Z88.6 Allergy status to analgesic agent; Z91.040 Latex allergy status; Z79.899 Other long term (current) drug therapy
CPT/HCPCS: 81025; 88305; 43239; J2704

== ENCOUNTER → 2021-04-04 | Outpatient (CLI) | payer BC ==
--- NOTE | 2021-04-04 11:35 | XR ---
EXAMINATION TYPE: XR KUB DATE OF EXAM: 04/04/2021 10:35 AM CLINICAL HISTORY: Left-sided flank pain for 2 weeks. TECHNIQUE: Two supine KUB images of the abdomen are obtained. COMPARISON: None. FINDINGS: Gas is seen in nondistended stomach. Scattered gas is seen in non-distended small bowel loo ps. Gas and fecal material is seen in non-distended colon. There is no visceromegaly or abnormal calc ification appreciated. The lung bases are clear and the osseous structures are intact. IMPRESSION: No definite nephrolithiasis. Overall nonobstructive bowel gas pattern.
== END | disposition home or self-care (01) ==
LOC: RADXRMAIN 09:57
PROVIDERS: ATTEND Internal Medicine
DX: N20.0 Calculus of kidney (principal)
CPT/HCPCS: 74018

== ENCOUNTER → 2021-04-05 | Outpatient (CLI) | payer BC ==
[2021-04-05 15:18] VITALS: BP 130/75; PULSE 70; RESP 16; TEMP 98.3; BMI 41.8
--- NOTE | 2021-04-05 21:34 | P.BASOAP ---
Subjective Progress Note Date: 04/05/21 Principal diagnosis: Morbid obesity Patient returns for bariatric evaluation. Underwent recent EGD on 03/29 showing minimal gastritis. Patient has stopped her smoking altogether at this point. She is on Chantix now. She has 1 more visit with her supervised weight loss. She has lost 28 pounds since her first evaluation here. Objective - Vital Signs Vital signs: Vital Signs Temp 98.3 F 04/05/21 15:15 Pulse 70 04/05/21 15:15 Resp 16 04/05/21 15:15 BP 130/75 04/05/21 15:15 Pulse Ox Intake & Output 04/05/21 04/05/21 04/06/21 06:59 18:59 06:59 Weight 128.367 kg - Exam Abdomen: Soft, nontender, nondistended Assessment/Plan (1) Morbid obesity with BMI of 45.0-49.9, adult Narrative/Plan: Patient remains interested in sleeve gastrectomy. Surgical risks and weight loss expectations again reviewed. She has 1 more visit with her primary care physician and has an upcoming dietary appointment as well. Following that we'll schedule. Plan: Date: 04/05/21 Initial Weight: 128.367 kg Initial BMI: 41.8 Current Weight: 128.367 kg Current BMI: 41.8 Type of Surgery: Total Volume in Band: Previous Volume: Volume Removed: Volume Added: Band Size:
== END ==
LOC: BARWHC3 14:41
PROVIDERS: ATTEND Surgery
DX: E66.01 Morbid (severe) obesity due to excess calories (principal); Z68.41 Body mass index [BMI] 40.0-44.9, adult; Z87.891 Personal history of nicotine dependence; Z91.040 Latex allergy status; Z91.018 Allergy to other foods
CPT/HCPCS: 99211

== ENCOUNTER → 2021-04-18 | Outpatient (CLI) | payer BC ==
[2021-04-18 12:08] VITALS: BMI 42.0
== END ==
LOC: BARWHC3 08:36
PROVIDERS: ATTEND Surgery
DX: E66.01 Morbid (severe) obesity due to excess calories (principal); Z71.3 Dietary counseling and surveillance; F17.200 Nicotine dependence, unspecified, uncomplicated; Z91.040 Latex allergy status; Z91.018 Allergy to other foods; Z68.41 Body mass index [BMI] 40.0-44.9, adult
CPT/HCPCS: 97804

== ENCOUNTER → 2021-05-18 | Outpatient (CLI) | payer BC ==
[2021-05-18 16:35] LABS: Basophils % (A) 1 %; Eosinophils # (A) 0.1 k/uL (0-0.7); Eosinophils % (A) 2 %; HGB 12.4 gm/dL (11.4-16.0); Lymphocytes # (A) 2.2 k/uL (1.0-4.8); Lymphocytes % (A) 46 %; MCH 30.4 pg (25.0-35.0); MCHC 33.5 g/dL (31.0-37.0); Mean Platelet Volume 8.2; Monocytes # (A) 0.2 k/uL (0-1.0); Monocytes % (A) 4 %; Neutrophils # (A) 2.2 k/uL (1.3-7.7); Neutrophils % (A) 45 %; Platelet Count 244 k/uL (150-450); RBC 4.07 m/uL (3.80-5.40); RDW 13.1 % (11.5-15.5); WBC 4.8 k/uL (3.8-10.6)
[2021-05-18 16:41] LABS: ALT 18 U/L (4-34); AST 25 U/L (14-36); African American GFR (CKD) >90 (>60 ml/min/1.73 sqM); Albumin 4.4 g/dL (3.5-5.0); Alkaline Phosphatase 46 U/L (38-126); Anion Gap 9 mmol/L; Blood Urea Nitrogen 16 mg/dL (7-17); Calcium 9.7 mg/dL (8.4-10.2); Carbon Dioxide 23 mmol/L (22-30); Chloride 104 mmol/L (98-107); Glucose 73 mg/dL (74-99); Non-African American GFR(CKD) >90 (>60 ml/min/1.73 sqM); Potassium 4.7 mmol/L (3.5-5.1); Sodium 136 mmol/L (137-145); Total Bilirubin 0.4 mg/dL (0.2-1.3)
== END | disposition home or self-care (01) ==
LOC: LABPAT 15:37
PROVIDERS: ATTEND Surgery
DX: Z01.812 Encounter for preprocedural laboratory examination (principal)
CPT/HCPCS: 36415; 80053; 85025

== ENCOUNTER 2021-05-23 09:55 | Inpatient (IN) | payer BC ==
[2021-05-30] MEDS ORDERED: ENOXAPARIN 40 MG/0.4 ML SYRINGE SQ PRN (05:00)
[2021-05-30] MEDS ORDERED: ceFAZolin 3 GM in SODIUM CHLORIDE 0.9% 100 ML IVPB PRN (05:00)
[2021-05-30] MEDS ORDERED: LIDOCAINE 1% (10MG/ML) FOR IV START INTRADERMA PRN (06:28)
[2021-05-30] MEDS ORDERED: ONDANSETRON 4 MG/2 ML VIAL IVP ONE ×2 (06:28→13:49)
[2021-05-30] MEDS ORDERED: DEXAMETHASONE SOD PHOSPHATE 4 MG/ML 1 ML VIAL IV ONE (06:28)
[2021-05-30] MEDS ORDERED: MIDAZOLAM 2 MG/2 ML VIAL IV PRN (06:28)
[2021-05-30] MEDS ORDERED: SCOPOLAMINE 1.5MG/72HR PATCH TRANSDERM ONE (10:22)
[2021-05-30] MEDS: LACTATED RINGERS 1,000 ML IV SCH (10:22)
--- NOTE | 2021-05-30 11:35 | P.GSHP ---
History of Present Illness H&P Date: 05/30/21 35-year-old female presents for elective laparoscopic sleeve gastrectomy. Patient was first seen in September of last year. Patient interested in surgical weight loss. Patient suffers from chronic reflux, sleep apnea, hypothyroidism. No history of DVT or dysphagia in the past. Patient is a previous smoker but quit in order to have the surgery performed. Recent EGD showed minimal gastritis. Past Medical History Past Medical History: Asthma, Chest Pain / Angina, Hypertension, Osteoarthritis (OA), Sleep Apnea/CPAP/BIPAP, Thyroid Disorder Additional Past Medical History / Comment(s): Chronic back and knee pain, uses CPAP. History of Any Multi-Drug Resistant Organisms: None Reported Past Surgical History: Section, Orthopedic Surgery Additional Past Surgical History / Comment(s): Right knee surgery, thryoidectomy, D&C. Past Anesthesia/Blood Transfusion Reactions: Motion Sickness, Postoperative Nausea & Vomiting (PONV) Smoking Status: Former smoker - Past Family History Mother Family Medical History: Asthma Additional Family Medical History / Comment(s): History of a heart murmur. Father Family Medical History: Unable to Obtain Additional Family Medical History / Comment(s): Patient does not know anything about her father. Brother(s) Additional Family Medical History / Comment(s): Patient has 3 brothers and one brother has sickle cell trait. Patient does not have any sisters. Patient has 1 son with no major medical problems. Medications and Allergies Home Medications Medication Instructions Recorded Confirmed Type Gabapentin 800 mg PO BID 03/11/21 05/30/21 History Albuterol Inhaler [Ventolin Hfa 1 puff INHALATION DAILY 05/19/21 05/30/21 History Inhaler] Allergies Allergy/AdvReac Type Severity Reaction Status Date / Time latex Allergy Rash/Hives Verified 05/19/21 11:23 artificial sweeteners Allergy Unknown Unknown Uncoded 05/19/21 11:23 Surgical - Exam Vital Signs Temp Pulse Resp BP Pulse Ox 97.1 F L 78 16 116/67 99 05/30/21 10:12 05/30/21 10:12 05/30/21 10:12 05/30/21 10:12 05/30/21 10:12 Physical exam: General: Well-developed, well-nourished HEENT: Normocephalic, sclerae nonicteric Abdomen: Nontender, nondistended Extremities: No edema Neuro: Alert and oriented Assessment and Plan (1) Morbid obesity with BMI of 45.0-49.9, adult Narrative/Plan: Will proceed with laparoscopic, possible open sleeve gastrectomy at this time. The risks of bleeding, infection, stenosis, stricture, leak, abscess, fistula formation, peritonitis, poor weight loss, reflux, vomiting, conversion to an open procedure, aborting sleeve gastrectomy, OR, PE, DVT, and were discussed. The patient understands and wishes to proceed. Current Visit: No Status: Acute Code(s): E66.01 - MORBID (SEVERE) OBESITY DUE TO EXCESS CALORIES; Z68.42 - BODY MASS INDEX [BMI] 45.0-49.9, ADULT SNOMED Code(s): 049665032
[2021-05-30] MEDS ORDERED: SUCCINYLCHOLINE CHLORIDE 100 MG/5 ML SYR IV ONE (11:59)
[2021-05-30] MEDS ORDERED: LIDOCAINE 1% INJ 10MG/ML (20 ML MDV) ONE (11:59)
[2021-05-30] MEDS ORDERED: ROCURONIUM 10 MG/ML (5 ML VIAL) IV ONE (11:59)
[2021-05-30] MEDS ORDERED: HYDROmorphone (PF) 1 MG/ML ONE (11:59)
[2021-05-30] MEDS ORDERED: fentaNYL (PF) 50 MCG/ML 2 ML AMP ONE (11:59)
[2021-05-30] MEDS ORDERED: PROPOFOL 10 MG/ML 20 ML VIAL IV ONE (11:59)
[2021-05-30] MEDS ORDERED: NEOSTIGMINE 1 MG/ML 10 ML VIAL ONE (11:59)
[2021-05-30] MEDS ORDERED: MIDAZOLAM 2 MG/2 ML VIAL ONE (11:59)
[2021-05-30] MEDS ORDERED: GLYCOPYRROLATE 0.2 MG/ML 2 ML VIAL ONE (11:59)
[2021-05-30] MEDS ORDERED: BUPIVACAINE (PF) 0.25% 30 ML VIAL SQ ONE ×2 (12:22)
[2021-05-30] MEDS ORDERED: LACTATED RINGERS 1,000 ML IV ONE ×3 (12:37→15:00)
[2021-05-30] MEDS ORDERED: METHYLENE BLUE 3 MG in DEXTROSE 5% IN WATER 500 ML IRRIGATION ONE ×2 (12:44)
[2021-05-30] MEDS ORDERED: ONDANSETRON 4 MG/2 ML VIAL ONE (13:44)
[2021-05-30] MEDS ORDERED: diphenhydrAMINE 50 MG/ML 1 ML VIAL IVP PRN (13:46)
[2021-05-30] MEDS ORDERED: NALOXONE 0.4 MG/ML 1 ML VIAL IV PRN (13:46)
--- NOTE | 2021-05-30 13:49 | P.OP ---
Date of Procedure: 05/30/21 Procedure(s) Performed: PREOPERATIVE DIAGNOSIS: Morbid obesity, GERD, sleep apnea POSTOPERATIVE DIAGNOSIS: Same PROCEDURE: Laparoscopic sleeve gastrectomy SURGEON: Spring EBL: Minimal ANESTHESIA: General COMPLICATIONS: None OPERATIVE PROCEDURE: Patient was placed in the operating table in the supine position. She was placed under general anesthesia at that time. The abdomen was prepped and draped in sterile fashion after the patient was placed in lithotomy. A 5 mm optical trocar was used to enter the abdominal cavity in the left upper quadrant. Insufflation took place to 15 millimeters mercury. An additional right subxiphoid 5 mm trocar was then placed under direct visualization and then removed. 2 additional 5 mm trochars were placed in the right upper quadrant and left upper quadrant under direct visualization and a 15 mm trocar in the supraumbilical location. The liver was retracted using a medium Ry liver retractor through the right subxiphoid trocar site. The hiatus was inspected. The patient had no visible hiatal hernia At that point I moved to the mid aspect of the greater curvature the stomach. The short gastric vasculature was divided using a LigaSure device proximally. I then switched and divided the short gastrics distally to a 3-4 cm from the pylorus. The dissection took place up to the left diaphragmatic crura at that point. The posterior short gastrics were likewise divided using the LigaSure device. Once the stomach was fully mobilized the blunt tipped 40-Jordanian bougie dilator was advanced into the stomach and advanced all the way to the prepyloric location. A black echelon 60 stapler with echelon Endopath staple line reinforcement was utilized and fired tangentially across the antrum taking care to avoid narrowing at the incisura angularis. Subsequent firings of the green echelon 60 stapler with echelon Endopath staple line reinforcement took place proximally staying on the outer edge of our dilator. 2-3 small areas of bleeding along the staple line were identified and clipped using a 12 mm clipper. The oral gastric tube was reinserted. The stomach was insufflated with approximately 100 mL of methylene blue. No evidence of leak or obstruction was seen. Tisseel fibrin glue was used along the length of the staple line. The stomach remnant was removed from the 15 mm trocar site without difficulty. The fascia at the 15 more site was closed using interrupted 0 Vicryl sutures with the laparoscopic suture passer and Chase Daphne technique. The insufflation was evacuated. The skin at all 5 incisions were closed using 4-0 Monocryl sutures. Skin glue was then applied. DISPOSITION: Stable to recovery room
[2021-05-30] MEDS: HYDROmorphone 0.5 MG/0.5 ML SYRINGE IVP PRN ×2 (14:10→14:33)
[2021-05-30] MEDS ORDERED: METOCLOPRAMIDE 5 MG/ML 2 ML VIAL ONE (15:11)
[2021-05-30] MEDS ORDERED: METOCLOPRAMIDE 5 MG/ML 2 ML VIAL IVP ONE (15:14)
[2021-05-30] MEDS: ACETAMINOPHEN IV (For NPO) 1,000 MG in EMPTY BAG 1 BAG IVPB SCH ×3 (17:04→23:34)
[2021-05-30] MEDS: ALBUTEROL NEBULIZED 2.5 MG/3 ML INHALATION SCH ×2 (17:39→21:15)
[2021-05-30] MEDS: 0.9% NACL WITH KCL 20 MEQ/L 1,000 ML IV SCH (17:49)
[2021-05-30] MEDS: ONDANSETRON 4 MG/2 ML VIAL IVP PRN ×2 (17:49→23:34)
[2021-05-30] MEDS: TRIMETHOBENZAMIDE 100 MG/ML 2 ML VIAL IM PRN (19:57)
[2021-05-30] MEDS: HYDROmorphone 1 MG/ML 1 ML SYRINGE IVP PRN (20:23)
[2021-05-30] MEDS: ENOXAPARIN 40 MG/0.4 ML SYRINGE SQ SCH (23:34)
[2021-05-31] MEDS: 0.9% NACL WITH KCL 20 MEQ/L 1,000 ML IV SCH ×2 (00:20→20:23)
[2021-05-31] MEDS: TRIMETHOBENZAMIDE 100 MG/ML 2 ML VIAL IM PRN ×2 (02:34→08:34)
[2021-05-31] MEDS: SIMETHICONE 40 MG/0.6 ML DROPS 2,000 MG/30 ML BOTTLE PO PRN ×3 (02:34→14:48)
[2021-05-31] MEDS: LACTATED RINGERS 1,000 ML IV SCH (04:20)
[2021-05-31] MEDS: ACETAMINOPHEN IV (For NPO) 1,000 MG in EMPTY BAG 1 BAG IVPB SCH ×4 (05:37→23:49)
[2021-05-31] MEDS: ENOXAPARIN 40 MG/0.4 ML SYRINGE SQ SCH ×2 (07:25→22:15)
[2021-05-31] MEDS: ONDANSETRON 4 MG/2 ML VIAL IVP PRN ×2 (07:25→20:26)
[2021-05-31] MEDS: PANTOPRAZOLE 40 MG/10 ML VIAL IV SCH (07:25)
[2021-05-31] MEDS: HYOSCYAMINE ORAL DROPS 1.875 MG/15 ML BOTTLE PO PRN ×2 (08:34→14:48)
[2021-05-31] MEDS: ALBUTEROL NEBULIZED 2.5 MG/3 ML INHALATION SCH ×4 (08:43→21:33)
[2021-05-31] MEDS: KETOROLAC 15 MG/ML 1 ML VIAL IVP SCH ×3 (09:05→20:25)
[2021-05-31] MEDS: 1: MVI, ADULT NO.4 WITH VIT K 10 ML, THIAMINE 100 MG, FOLIC ACID 1 MG, POTASSIUM CHLORID IV SCH ×12 (10:06→23:53)
[2021-05-31 11:04] LABS: Basophils # (A) 0.03 X 10*3/uL (0.00-0.10); Basophils % (A) 0.3 %; Eosinophils # (A) 0 X 10*3/uL (0.04-0.35); Eosinophils % (A) 0 %; HCT 38.1 % (37.2-46.3); HGB 12.4 g/dL (12.0-15.0); Lymphocytes # (A) 2.02 X 10*3/uL (0.90-5.00); Lymphocytes % (A) 19.8 %; MCH 29.5 pg (27.0-32.0); MCHC 32.5 g/dL (32.0-37.0); MCV 90.7 fL (80.0-97.0); Mean Platelet Volume 12.3 fL (9.5-12.2); Monocytes # (A) 0.97 X 10*3/uL (0.20-1.00); Monocytes % (A) 9.5 %; Neutrophils # (A) 7.13 X 10*3/uL (1.80-7.70); Platelet Count 228 X 10*3/uL (140-440); RDW 12.8 % (11.5-14.5); WBC 10.19 X 10*3/uL (4.50-10.00)
--- NOTE | 2021-05-31 11:28 | P.CONS ---
History of Present Illness - Reason for Consult Consult date: 05/31/21 medical management Requesting physician: Scooby Londono - History of Present Illness HISTORY OF PRESENT ILLNESS This is a 35-year-old female patient of Dr. Lucero with past medical history significant for mild intermittent asthma, hypertension not on medication, active tobacco use and dependence. The patient has been brought into the hospital under the care of Dr. Londono for laparoscopic sleeve gastrectomy. Patient is postop day #1. She states she's had some nausea and has some left-sided abdominal pain. She denies having any chest pain. She denies having any gas or burping. Blood pressure this morning is 138/98. Afebrile, heart rate 70s, pulse ox 90% on room air. REVIEW OF SYSTEMS Constitutional: No fever, no chills, no night sweats. No weight change. No weakness, fatigue or lethargy. No daytime sleepiness. EENT: No headache. No blurred vision or double vision, no loss of vision. No loss of Hearing, no ringing in the ears, no dizziness. No nasal drainage or congestion. No epistaxis. No sore throat. Lungs: No shortness of breath, cough, no sputum production. No wheezing. Cardiovascular: No chest pain, no lower extremity edema. No palpitations. No paroxysmal nocturnal dyspnea. No orthopnea. No lightheadedness or dizziness. No syncopal episodes. Abdominal: Reports abdominal pain. Reports nausea, no vomiting. No diarrhea. No constipation. No bloody or tarry stools.. No loss of appetite. Genitourinary: No dysuria, increased frequency, urgency. No urinary retention. Musculoskeletal: No myalgias. No muscle weakness, no gait dysfunction, no frequent falls. No back pain. No neck pain. Integumentary: No wounds, no lesions. No rash or pruritus. No unusual bruising. No change in hair or nails. Neurologic: No aphasia. No facial droop. No change in mentation. No head injury. No headache. No paralysis. No paresthesia. Psychiatric: No depression. No anxiety. No mood swings. Endocrine: No abnormal blood sugars. No weight change. MEDICAL HISTORY Mild intermittent asthma Hypertension Tobacco use and dependence Obesity SURGICAL HISTORY in 2008, arthroscopic knee surgery in 2013 D&C 2013 Thyroidectomy 2014 SOCIAL HISTORY Patient is a smoker of one half pack per day and quit 05/25/2021. She denies any marijuana, illicit drug use, alcohol abuse. FAMILY HISTORY Father is alive at age 55 with no major medical problems. Mother is alive at age 53 with asthma. Patient has 3 brothers and one has sickle cell and the other 2 brothers have no major medical problems. Patient has one son with no major medical problems. PHYSICAL EXAMINATION Gen: This is an obese 35-year-old -[place]ag[place] female. Patient is sitting on the edge of the bed and appears to be comfortable and in no acute distress. HEENT: Head is atraumatic, normocephalic. Pupils equal, round. Sclerae is anicteric. NECK: Supple. No JVD. No lymphadenopathy. No thyromegaly. LUNGS: Clear to auscultation. No wheezes or rhonchi. No intercostal retractions. HEART: First heart sound is depressed, second heart sound is normal, 2/6 systolic ejection murmur at the left sternal border, no S3 or S4. ABDOMEN: Soft. Bowel sounds are present. No masses. No tenderness. EXTREMITIES: No pedal edema. No calf tenderness. Dorsalis pedis +2 bilaterally. NEUROLOGICAL: Patient is awake, alert and oriented x3. Cranial nerves 2 through 12 are grossly intact. ASSESSMENT AND PLAN 1. Obesity status post laparoscopic sleeve gastrectomy, 05/30. Patient has had some postop nausea. Continue Zofran as needed, continue pain medications as needed. Upper GIs scheduled for today. 2. Mild intermittent asthma. Continue albuterol inhaler as needed. 3. Tobacco use and dependence. 4. DVT prophylaxis. Continue Lovenox 40 mg subcu every 12 hours. 5. GI prophylaxis. Continue Protonix 40 mg IV daily. DISCHARGE PLAN Home. Impression and plan of care have been directed as dictated by the signing physician. Audra Godoy nurse practitioner acting as scribe for signing physician. Past Medical History Past Medical History: Asthma, Chest Pain / Angina, Hypertension, Osteoarthritis (OA), Sleep Apnea/CPAP/BIPAP, Thyroid Disorder Additional Past Medical History / Comment(s): Chronic back and knee pain, uses CPAP. History of Any Multi-Drug Resistant Organisms: None Reported Past Surgical History: Section, Orthopedic Surgery Additional Past Surgical History / Comment(s): Right knee surgery, thryoidectomy, D&C. Past Anesthesia/Blood Transfusion Reactions: Motion Sickness, Postoperative Nausea & Vomiting (PONV) Smoking Status: Former smoker - Past Family History Mother Family Medical History: Asthma Additional Family Medical History / Comment(s): History of a heart murmur. Father Family Medical History: Unable to Obtain Additional Family Medical History / Comment(s): Patient does not know anything about her father. Brother(s) Additional Family Medical History / Comment(s): Patient has 3 brothers and one brother has sickle cell trait. Patient does not have any sisters. Patient has 1 son with no major medical problems. Medications and Allergies Home Medications Medication Instructions Recorded Confirmed Type Gabapentin 800 mg PO BID 03/11/21 05/30/21 History Albuterol Inhaler [Ventolin Hfa 1 puff INHALATION DAILY 05/19/21 05/30/21 History Inhaler] Allergies Allergy/AdvReac Type Severity Reaction Status Date / Time latex Allergy Rash/Hives Verified 05/19/21 11:23 artificial sweeteners Allergy Unknown Unknown Uncoded 05/19/21 11:23 Physical Exam Vitals: Vital Signs Temp Pulse Pulse Pulse Resp BP BP 05/31/21 02:37 98.5 F 71 18 174/81 05/30/21 23:48 05/30/21 19:22 98.7 F 91 18 176/95 05/30/21 17:50 99.4 F 98 18 187/81 05/30/21 17:38 05/30/21 16:45 87 16 156/71 05/30/21 16:15 86 16 158/80 05/30/21 15:45 79 16 154/84 05/30/21 15:15 77 16 158/80 05/30/21 14:53 84 16 161/66 05/30/21 14:38 77 16 157/78 05/30/21 14:23 81 18 142/63 05/30/21 14:08 68 16 157/70 05/30/21 13:53 81 16 159/71 05/30/21 13:38 97.4 F L 87 14 153/66 05/30/21 10:12 97.1 F L 78 16 116/67 Pulse Ox 05/31/21 02:37 97 05/30/21 23:48 95 05/30/21 19:22 97 05/30/21 17:50 93 L 05/30/21 17:38 98 05/30/21 16:45 100 05/30/21 16:15 100 05/30/21 15:45 100 05/30/21 15:15 96 05/30/21 14:53 96 05/30/21 14:38 95 05/30/21 14:23 95 05/30/21 14:08 98 05/30/21 13:53 97 05/30/21 13:38 98 05/30/21 10:12 99 Intake and Output 05/30/21 05/31/21 05/31/21 22:59 06:59 14:59 Intake Total 1050 Output Total 400 Balance 650 Intake: IV 1050 Output: Urine 400 Other: Voiding Method Toilet # Voids 3 Results CBC & Chem 7: 05/31/21 07:21
[2021-05-31 14:04] LABS: African American GFR (CKD) 94.7 (60.0-200.0); Anion Gap 9.3 mmol/L (4.00-12.00); Calcium 9.3 mg/dL (8.7-10.3); Carbon Dioxide 23.7 mmol/L (21.6-31.8); Magnesium 1.8 mg/dL (1.5-2.4); Non-African American GFR(CKD) 81.7 (60.0-200.0); Potassium 4.5 mmol/L (3.5-5.5)
--- NOTE | 2021-05-31 14:25 | FL ---
EXAMINATION TYPE: FL UGI DATE OF EXAM: 05/31/2021 COMPARISON: NONE HISTORY: Postop bariatric surgery TECHNIQUE: A single contrast UGI study is performed. A total of 17 seconds of fluoroscopic time was utilized during procedure and C5 images obtained. FINDINGS: Contrast passed and the esophagus without delay. Esophageal peristalsis and motility were n ormal. There is mild delay at the level the GE junction with no diagnostic evidence of obstruction or extravasation. IMPRESSION: 1. Mild obstruction of the level of GE junction with no evidence of extravasation.
--- NOTE | 2021-05-31 14:34 | P.PN ---
Subjective Progress Note Date: 05/31/21 Principal diagnosis: Morbid obesity Patient is having mild nausea. Slightly better than yesterday. Upper GI shows no evidence of leak or obstruction. Tolerating small amounts of liquids. She is afebrile with stable vitals. White blood cell count 10. Objective - Vital Signs Vital signs: Vital Signs Temp 98.5 F 05/31/21 07:00 Pulse 70 05/31/21 10:20 Resp 16 05/31/21 10:20 BP 138/98 05/31/21 07:00 Pulse Ox 99 05/31/21 08:44 Intake & Output 05/30/21 05/31/21 05/31/21 18:59 06:59 18:59 Intake Total 2451 Output Total 405 Balance 2045 Weight 117 kg Intake: IV 2451 Output: Urine 400 Estimated Blood Loss 5 Other: Voiding Method Toilet Toilet # Voids 3 - Exam Abdomen: Soft, nondistended, incisions clean and dry, mild tenderness - Labs CBC & Chem 7: 05/31/21 07:21 05/31/21 07:21 Labs: Abnormal Lab Results - Last 24 Hours (Table) 05/31/21 Range/Units 07:21 WBC 10.19 H (4.50-10.00) X 10*3/uL MPV 12.3 H (9.5-12.2) fL Eosinophils # 0 L (0.04-0.35) X 10*3/uL Assessment and Plan (1) Morbid obesity with BMI of 45.0-49.9, adult Narrative/Plan: Patient doing well after sleeve gastrectomy. Continue bariatric clear liquids. Continue IV analgesics. Continue antiemetics as needed. Ambulate. Current Visit: No Status: Acute Code(s): E66.01 - MORBID (SEVERE) OBESITY DUE TO EXCESS CALORIES; Z68.42 - BODY MASS INDEX [BMI] 45.0-49.9, ADULT SNOMED Code(s): 825275168
[2021-05-31] MEDS: HYDROmorphone 1 MG/ML 1 ML SYRINGE IVP PRN (18:05)
[2021-06-01] MEDS: KETOROLAC 15 MG/ML 1 ML VIAL IVP SCH ×2 (03:54→08:37)
[2021-06-01] MEDS: LACTATED RINGERS 1,000 ML IV SCH (06:25)
[2021-06-01] MEDS: ALBUTEROL NEBULIZED 2.5 MG/3 ML INHALATION SCH ×2 (07:21→11:02)
[2021-06-01] MEDS ORDERED: bisacodyL 5 MG TABLET.DR PO PRN (08:00)
[2021-06-01 08:24] VITALS: BP 131/83; PULSE 61; RESP 16; TEMP 98.2
[2021-06-01] MEDS: PANTOPRAZOLE 40 MG/10 ML VIAL IV SCH (08:37)
[2021-06-01] MEDS: ENOXAPARIN 40 MG/0.4 ML SYRINGE SQ SCH (08:38)
--- NOTE | 2021-06-01 09:11 | P.PN ---
Subjective Progress Note Date: 06/01/21 HISTORY OF PRESENT ILLNESS This is a 35-year-old female patient of Dr. Lucero with past medical history significant for mild intermittent asthma, hypertension not on medication, active tobacco use and dependence. The patient has been brought into the hospital under the care of Dr. Londono for laparoscopic sleeve gastrectomy. Patient is postop day #1. She states she's had some nausea and has some left-sided abdominal pain. She denies having any chest pain. She denies having any gas or burping. Blood pressure this morning is 138/98. Afebrile, heart rate 70s, pulse ox 90% on room air. 06/01: Upper GI revealed mild obstruction at the level of the GE junction with no evidence of extravasation. Patient is tolerating bariatric clear liquid diet without nausea vomiting. She does have a little soreness to the left abdomen. She states she has not passed gas and no bowel movement. She has been up and ambulating in the hallway. She's been afebrile, heart rate 68, blood pressure 143/88, pulse ox 97% on room air. REVIEW OF SYSTEMS Constitutional: No fever, no chills, no night sweats. No weight change. No weakness, fatigue or lethargy. No daytime sleepiness. EENT: No headache. No blurred vision or double vision, no loss of vision. No loss of Hearing, no ringing in the ears, no dizziness. No nasal drainage or congestion. No epistaxis. No sore throat. Lungs: No shortness of breath, cough, no sputum production. No wheezing. Cardiovascular: No chest pain, no lower extremity edema. No palpitations. No paroxysmal nocturnal dyspnea. No orthopnea. No lightheadedness or dizziness. No syncopal episodes. Abdominal: Reports abdominal discomfort. Denies nausea, no vomiting. No diarrhea. No constipation. No bloody or tarry stools.. No loss of appetite. Genitourinary: No dysuria, increased frequency, urgency. No urinary retention. Musculoskeletal: No myalgias. No muscle weakness, no gait dysfunction, no frequent falls. No back pain. No neck pain. Integumentary: No wounds, no lesions. No rash or pruritus. No unusual bruising. No change in hair or nails. Neurologic: No aphasia. No facial droop. No change in mentation. No head injury. No headache. No paralysis. No paresthesia. Psychiatric: No depression. No anxiety. No mood swings. Endocrine: No abnormal blood sugars. No weight change. PHYSICAL EXAMINATION Gen: This is an obese 35-year-old -[place] female. Patient is sitting up in bed and appears to be comfortable and in no acute distress. HEENT: Head is atraumatic, normocephalic. Pupils equal, round. Sclerae is anicteric. NECK: Supple. No JVD. No lymphadenopathy. No thyromegaly. LUNGS: Clear to auscultation. No wheezes or rhonchi. No intercostal retractions. HEART: First heart sound is depressed, second heart sound is normal, 2/6 systolic ejection murmur at the left sternal border, no S3 or S4. ABDOMEN: Soft. Bowel sounds are present. No masses. No tenderness. EXTREMITIES: No pedal edema. No calf tenderness. Dorsalis pedis +2 bilaterally. NEUROLOGICAL: Patient is awake, alert and oriented x3. Cranial nerves 2 through 12 are grossly intact. ASSESSMENT AND PLAN 1. Obesity status post laparoscopic sleeve gastrectomy, 05/30. Patient has had some postop nausea, resolved. Continue Zofran as needed, continue pain medications as needed. Continue bariatric clear liquid diet. 2. Mild intermittent asthma. Continue albuterol inhaler as needed. 3. Tobacco use and dependence. 4. DVT prophylaxis. Continue Lovenox 40 mg subcu every 12 hours. 5. GI prophylaxis. Continue Protonix 40 mg IV daily. DISCHARGE PLAN Home. Impression and plan of care have been directed as dictated by the signing physician. Audra Godoy nurse practitioner acting as scribe for signing physician. Objective - Vital Signs Vital signs: Vital Signs Temp 98.4 F 06/01/21 02:47 Pulse 68 06/01/21 02:47 Resp 17 06/01/21 02:47 BP 143/88 06/01/21 02:47 Pulse Ox 97 06/01/21 02:47 Intake & Output 05/31/21 06/01/21 06/01/21 18:59 06:59 18:59 Intake Total 1200 1450 Balance 1200 1450 Intake: Intake, IV Titration 1200 1400 Amount 0.9% NaCl with KCl 20 Meq 300 /l 1,000 ml @ 100 mls/hr IV .BY DURATION [facility] Rx#: [id number] ACETAMINOPHEN IV (For NPO 400 ) 1,000 mg In Empty Bag 1 bag @ 400 mls/hr IVPB Q6HR [facility] Rx#:[id number] Mvi, Adult No.4 with Vit 1200 700 K 10 ml Thiamine 100 mg Folic Acid 1 mg Potassium Chloride 20 meq In Sodium Chloride 0.9% 1, 000 ml @ 100 mls/hr IV . BY DURATION [facility] Rx#: [id number] Oral 50 Other: Voiding Method Toilet # Voids 2 - Labs CBC & Chem 7: 05/31/21 07:21 08 07:21 Labs: Abnormal Lab Results - Last 24 Hours (Table) 05/31/21 Range/Units 07:21 WBC 10.19 H (4.50-10.00) X 10*3/uL MPV 12.3 H (9.5-12.2) fL Eosinophils # 0 L (0.04-0.35) X 10*3/uL
[2021-06-01 11:13] LABS: Basophils # (A) 0.04 X 10*3/uL (0.00-0.10); Basophils % (A) 0.6 %; Eosinophils # (A) 0.04 X 10*3/uL (0.04-0.35); Eosinophils % (A) 0.6 %; HCT 33.7 % (37.2-46.3); HGB 10.7 g/dL (12.0-15.0); Lymphocytes # (A) 3.06 X 10*3/uL (0.90-5.00); Lymphocytes % (A) 45.1 %; MCHC 31.8 g/dL (32.0-37.0); MCV 94.4 fL (80.0-97.0); Mean Platelet Volume 12.4 fL (9.5-12.2); Monocytes # (A) 0.44 X 10*3/uL (0.20-1.00); Monocytes % (A) 6.5 %; Neutrophils # (A) 3.18 X 10*3/uL (1.80-7.70); Neutrophils % (A) 46.9 %; Platelet Count 210 X 10*3/uL (140-440); RBC 3.57 X 10*6/uL (4.10-5.20); RDW 13.2 % (11.5-14.5); WBC 6.78 X 10*3/uL (4.50-10.00)
[2021-06-01 11:35] LABS: African American GFR (CKD) 109.2 (60.0-200.0); Anion Gap 5.5 mmol/L (4.00-12.00); BUN/Creat Ratio 23.75 Ratio (12.00-20.00); Calcium 8.9 mg/dL (8.7-10.3); Carbon Dioxide 26.5 mmol/L (21.6-31.8); Non-African American GFR(CKD) 94.2 (60.0-200.0); Potassium 4.3 mmol/L (3.5-5.5)
--- NOTE | 2021-06-01 13:05 | P.DS ---
<Jane Hsu - Last Filed: 06/01/21 13:03> Providers Expected date of discharge: 06/01/21 Hospital Course: Discharge diagnosis 1. Morbid obesity status post laparoscopic sleeve gastrectomy 2. GERD 3. Sleep apnea This is a 35-year-old female with history of morbid obesity she is status post laparoscopic sleeve gastrectomy. She tolerated surgery well. Her pain is controlled. Upper GI shows mild obstruction at the level of the GE junction with no evidence of extravasation. Patient is tolerating diet. She is up and ambulating. She is afebrile. She is stable for discharge. Please refer to chart for any further details. Physician [employer] note has been reviewed by physician. Signing provider agrees with the documented findings, assessment, and plan of care. Patient Condition at Discharge: Stable Plan - Discharge Summary Discharge Rx Participant: No New Discharge Prescriptions: New bisacodyL [Dulcolax] 5 mg PO DAILY PRN #10 tablet. PRN Reason: Constipation Acetaminophen Tab [Tylenol Tab] 650 mg PO Q4H PRN #30 tablet PRN Reason: Pain Simethicone 40 mg/0.6 ml Drops [Mylicon Drops] 40 mg PO PCHS PRN #30 ml PRN Reason: Gas Omeprazole [PriLOSEC] 40 mg PO DAILY #30 capsule. traMADol HCl [Ultram] 50 mg PO Q6HR PRN 3 Days #6 tab PRN Reason: Pain Ondansetron Odt [Zofran Odt] 4 mg PO Q8HR PRN #9 tab PRN Reason: Nausea Continue Gabapentin 800 mg PO BID Albuterol Inhaler [Ventolin Hfa Inhaler] 1 puff INHALATION DAILY Discharge Medication List Gabapentin 800 mg PO BID 03/11/21 [History] Albuterol Inhaler [Ventolin Hfa Inhaler] 1 puff INHALATION DAILY 05/19/21 [History] Acetaminophen Tab [Tylenol Tab] 650 mg PO Q4H PRN #30 tablet 06/01/21 [Rx] Omeprazole [PriLOSEC] 40 mg PO DAILY #30 capsule. 06/01/21 [Rx] Ondansetron Odt [Zofran Odt] 4 mg PO Q8HR PRN #9 tab 06/01/21 [Rx] Simethicone 40 mg/0.6 ml Drops [Mylicon Drops] 40 mg PO PCHS PRN #30 ml 06/01/21 [Rx] bisacodyL [Dulcolax] 5 mg PO DAILY PRN #10 tablet. 06/01/21 [Rx] traMADol HCl [Ultram] 50 mg PO Q6HR PRN 3 Days #6 tab 06/01/21 [Rx] Follow up Appointment(s)/Referral(s): Eugene Lucero MD [Primary Care Provider] - 1 Week (Office is closed at time of your discharge. Please call to schedule an appointment for one weeks time.) [place] - 06/03/21 10:30 am (Please come to the Bariatric Center on 3rd Floor [facility] for your Nurse Visit on Sunday06/03/21 at 1030 am. ) Patient Instructions/Handouts: Nutrition after Bariatric Surgery (DC), Laparoscopic Sleeve Gastrectomy (DC) Activity/Diet/Wound Care/Special Instructions: No driving while taking Ultram No lifting over 10 pounds You may shower. No soaking or tub baths for 2 weeks Very light activity until you are reevaluated at your follow up appointment with your surgeon No straws or carbonated beverages Discharge Disposition: HOME SELF-CARE <Scooby Londono - Last Filed: 06/01/21 18:14> Providers Date of admission: 05/30/21 09:36 Attending physician: Scooby Londono Consults: 05/31/21 07:56 Consult Physician Routine Consulting Provider: Eugene Lucero Consult Reason/Comments: medical management Do you want consulting provider notified?: Yes Primary care physician: Eugene Lucero - Discharge Diagnosis(es) (1) Morbid obesity with BMI of 45.0-49.9, adult Status: Acute Hospital Course: As above. Patient doing well. May discharge. Follow-up one week.
[2021-06-01 13:30] VITALS: BMI 38.0
== END 2021-06-01 14:33 | disposition home or self-care (01) | DRG 621 ==
LOC: 2ORMAIN 05-30 09:36 → 4SSUR 05-30 16:57
PROVIDERS: ADMIT Surgery; ATTEND Surgery
PROC: 0DB64Z3 Excision of Stomach, Percutaneous Endoscopic Approach, Vertical (ICD-10-PCS; principal; 2021-05-30 10:55)
DX: E66.01 Morbid (severe) obesity due to excess calories (principal); E89.0 Postprocedural hypothyroidism; Z68.38 Body mass index [BMI] 38.0-38.9, adult; G47.30 Sleep apnea, unspecified; J45.20 Mild intermittent asthma, uncomplicated; I10 Essential (primary) hypertension; K21.9 Gastro-esophageal reflux disease without esophagitis; M19.90 Unspecified osteoarthritis, unspecified site; G89.29 Other chronic pain; M54.9 Dorsalgia, unspecified; M25.569 Pain in unspecified knee; Z79.899 Other long term (current) drug therapy; F17.211 Nicotine dependence, cigarettes, in remission; Z87.39 Personal history of other diseases of the musculoskeletal system and connective tissue; Z98.890 Other specified postprocedural states; Z98.891 History of uterine scar from previous surgery; Z91.02 Food additives allergy status; Z71.3 Dietary counseling and surveillance; Z91.040 Latex allergy status; Z82.5 Family history of asthma and other chronic lower respiratory diseases; Z83.2 Family history of diseases of the blood and blood-forming organs and certain disorders involving the immune mechanism
CPT/HCPCS: 74240; 80048; 80051; 81025; 82310; 82565; 83735; 84100; 84520; 85025; 88307; 94760

== ENCOUNTER → 2021-06-03 | Outpatient (CLI) | payer BC ==
[2021-06-03 10:54] VITALS: BP 118/76; PULSE 71; TEMP 98.2; BMI 37.6
== END ==
LOC: BARWHC3 10:31
PROVIDERS: ATTEND Surgery
DX: E66.01 Morbid (severe) obesity due to excess calories (principal); Z98.84 Bariatric surgery status; Z68.37 Body mass index [BMI] 37.0-37.9, adult; Z91.040 Latex allergy status; Z91.02 Food additives allergy status
CPT/HCPCS: 99211

== ENCOUNTER → 2021-06-07 | Outpatient (CLI) | payer BC ==
[2021-06-07 13:52] VITALS: BP 120/83; PULSE 81; TEMP 98.3; BMI 37.0
--- NOTE | 2021-06-07 15:55 | P.BASOAP ---
Subjective Progress Note Date: 06/07/21 Principal diagnosis: Morbid obesity Patient returns 1 week after sleeve gastrectomy. Doing fairly well at this time. Complaining of mild pain at the umbilicus when she turns a certain way. She has lost 4 pounds since Sunday. Yesterday she took in over 64 ounces of liquids. Only 30 g of protein yesterday. No nausea or vomiting. No heartburn. Remains on antiacids. She did have some black colored stools. Vital signs stable. Objective - Vital Signs Vital signs: Vital Signs Temp 98.3 F 06/07/21 13:48 Pulse 81 06/07/21 13:48 Resp BP 120/83 06/07/21 13:48 Pulse Ox Intake & Output 06/06/21 06/07/21 06/07/21 18:59 06:59 18:59 Weight 113.852 kg - Exam Abdomen: Soft, nontender, nondistended, incisions clean and dry Assessment/Plan (1) Morbid obesity with BMI of 45.0-49.9, adult Narrative/Plan: Patient doing well after recent sleeve gastrectomy. Continue dietary and exer cise regimen. Increase protein intake. Return visit 2 weeks. Plan: Date: 06/07/21 Initial Weight: 128.367 kg Initial BMI: 41.8 Current Weight: 113.852 kg Current BMI: 37.0 Type of Surgery: Total Volume in Band: Previous Volume: Volume Removed: Volume Added: Band Size:
== END ==
LOC: BARWHC3 13:02
PROVIDERS: ATTEND Surgery
DX: E66.01 Morbid (severe) obesity due to excess calories (principal); Z68.42 Body mass index [BMI] 45.0-49.9, adult; Z71.3 Dietary counseling and surveillance
CPT/HCPCS: 97803; 99211

== ENCOUNTER → 2021-06-28 | Outpatient (CLI) | payer BC ==
[2021-06-28 14:07] VITALS: BP 124/80; PULSE 80; RESP 16; TEMP 98.3; BMI 34.4
[2021-06-28 16:20] LABS: HCT 37.7 % (34.0-46.0); HGB 12.7 gm/dL (11.4-16.0); Hypochromasia Slight; MCH 30.5 pg (25.0-35.0); MCHC 33.6 g/dL (31.0-37.0); MCV 90.7 fL (80.0-100.0); Mean Platelet Volume 9.6; Platelet Count 190 k/uL (150-450); RBC 4.15 m/uL (3.80-5.40); RDW 13.6 % (11.5-15.5); WBC 4.4 k/uL (3.8-10.6)
--- NOTE | 2021-06-28 17:07 | P.BASOAP ---
Subjective Progress Note Date: 06/28/21 Principal diagnosis: Morbid obesity Patient returns for evaluation. Last seen 06/07. Pain at the umbilicus less frequent but still present at times. He notices this discomfort about once per day. She has lost 18 pounds since last visit. Mild reflux. Needs a refill for her antiacids. No nausea or vomiting. She is due for one month labs. Objective - Vital Signs Vital signs: Vital Signs Temp 98.3 F 06/28/21 14:05 Pulse 80 06/28/21 14:05 Resp 16 06/28/21 14:05 BP 124/80 06/28/21 14:05 Pulse Ox Intake & Output 06/27/21 06/28/21 06/28/21 18:59 06:59 18:59 Weight 105.687 kg - Exam Abdomen: Soft, mild periumbilical tenderness, nondistended - Labs CBC & Chem 7: 06/28/21 15:24 Assessment/Plan (1) Morbid obesity with BMI of 45.0-49.9, adult Narrative/Plan: Will refill the patient's prescription for antiacids. Gradually resume normal a ctivity. Continue dietary regimen. Return visit one month. Check one month labs at this time. Plan: Date: 06/28/21 Initial Weight: 128.367 kg Initial BMI: 41.8 Current Weight: 105.687 kg Current BMI: 34.4 Type of Surgery: Total Volume in Band: Previous Volume: Volume Removed: Volume Added: Band Size:
[2021-06-29 00:54] LABS: ALT 15 U/L (8-44); AST 18 U/L (13-35); African American GFR (CKD) 94.7 (60.0-200.0); Albumin/Globulin Ratio 1.96 (1.60-3.17); Alkaline Phosphatase 57 U/L (41-126); Calcium 9.7 mg/dL (8.7-10.3); Carbon Dioxide 25.9 mmol/L (21.6-31.8); Chloride 108 mmol/L (96-109); Globulin 2.3 g/dL (1.6-3.3); Glucose 73 mg/dL (70-110); Iron 36 ug/dL (50-170); Non-African American GFR(CKD) 81.7 (60.0-200.0); Potassium 4.6 mmol/L (3.5-5.5); Sodium 141 mmol/L (135-145); Total Bilirubin 0.8 mg/dL (0.3-1.2); Total Protein 6.8 g/dL (6.2-8.2)
[2021-06-29 01:09] LABS: Hemoglobin A1C 4.6 % (4.0-6.0)
[2021-06-29 01:38] LABS: Folate, Serum >24.0 ng/mL
== END ==
LOC: BARWHC3 13:34
PROVIDERS: ATTEND Surgery
DX: E66.01 Morbid (severe) obesity due to excess calories (principal); K21.9 Gastro-esophageal reflux disease without esophagitis; Z68.34 Body mass index [BMI] 34.0-34.9, adult; Z91.040 Latex allergy status; Z91.018 Allergy to other foods
CPT/HCPCS: 36415; 80053; 82306; 82607; 82746; 83036; 83540; 84425; 85027; 97803; 99211

== ENCOUNTER → 2021-08-02 | Outpatient (CLI) | payer BC ==
[2021-08-02 15:21] VITALS: BP 127/84; PULSE 81; TEMP 98.4; BMI 31.8
--- NOTE | 2021-08-02 15:47 | P.BASOAP ---
Subjective Progress Note Date: 08/02/21 Principal diagnosis: Morbid recently Patient doing well today. She is losing weight at a good pace. No heartburn. No nausea or vomiting. Some constipation after starting iron supplementation. Objective - Vital Signs Vital signs: Vital Signs Temp 98.4 F 08/02/21 15:19 Pulse 81 08/02/21 15:19 Resp BP 127/84 08/02/21 15:19 Pulse Ox Intake & Output 08/01/21 08/02/21 08/02/21 18:59 06:59 18:59 Weight 97.976 kg - Exam Abdomen: Soft, nontender, nondistended Assessment/Plan (1) Morbid obesity with BMI of 45.0-49.9, adult Narrative/Plan: Patient doing well. Continue dietary and exercise regimen. Monitor complaints of periumbilical discomfort although improving. Follow-up 4-6 weeks. Recheck three-month labs at that time. Plan: Date: 08/02/21 Initial Weight: 128.367 kg Initial BMI: 41.8 Current Weight: 97.976 kg Current BMI: 31.8 Type of Surgery: Total Volume in Band: Previous Volume: Volume Removed: Volume Added: Band Size:
== END ==
LOC: BARWHC3 15:02
PROVIDERS: ATTEND Surgery
DX: E66.01 Morbid (severe) obesity due to excess calories (principal); F17.200 Nicotine dependence, unspecified, uncomplicated; Z68.31 Body mass index [BMI] 31.0-31.9, adult; Z91.040 Latex allergy status; Z91.02 Food additives allergy status
CPT/HCPCS: 99211

== ENCOUNTER → 2021-09-13 | Outpatient (CLI) | payer BC ==
[2021-09-13 15:08] VITALS: BP 152/80; PULSE 76; TEMP 97.9; BMI 29.7
--- NOTE | 2021-09-13 15:35 | P.BASOAP ---
Subjective Progress Note Date: 09/13/21 Principal diagnosis: Morbid obesity Patient returns for evaluation. Doing well since last visit. Mild constipation. Constipation mostly controlled with MiraLAX. Pain around the umbilicus increased with constipation. No heartburn. Good weight loss. Objective - Vital Signs Vital signs: Vital Signs Temp 97.9 F 09/13/21 15:05 Pulse 76 09/13/21 15:05 Resp BP 152/80 09/13/21 15:05 Pulse Ox Intake & Output 09/12/21 09/13/21 09/13/21 18:59 06:59 18:59 Weight 91.172 kg - Exam Abdomen: Soft, nontender, nondistended Assessment/Plan (1) Morbid obesity with BMI of 45.0-49.9, adult Narrative/Plan: Patient doing well at this time. Check 3 months labs. Continue MiraLAX daily. Increase exercise. Follow-up 4-6 weeks. Plan: Date: 09/13/21 Initial Weight: 128.367 kg Initial BMI: 41.8 Current Weight: 91.172 kg Current BMI: 29.7 Type of Surgery: Total Volume in Band: Previous Volume: Volume Removed: Volume Added: Band Size:
[2021-09-13 17:01] LABS: HCT 38.6 % (34.0-46.0); HGB 12.2 gm/dL (11.4-16.0); MCH 27.4 pg (25.0-35.0); MCHC 31.6 g/dL (31.0-37.0); MCV 86.7 fL (80.0-100.0); Mean Platelet Volume 9.8; Platelet Count 206 k/uL (150-450); RBC 4.45 m/uL (3.80-5.40); RDW 14.7 % (11.5-15.5); WBC 6.8 k/uL (3.8-10.6)
[2021-09-14 00:32] LABS: African American GFR (CKD) 128.7 (60.0-200.0); Albumin 4.4 g/dL (3.8-4.9); Albumin/Globulin Ratio 1.95 (1.60-3.17); Anion Gap 11.3 mmol/L (10.00-18.00); BUN/Creat Ratio 17.15 Ratio (12.00-20.00); Blood Urea Nitrogen 11.9 mg/dL (9.0-27.0); Calcium 9.7 mg/dL (8.7-10.3); Carbon Dioxide 23.7 mmol/L (20.0-27.5); Folate, Serum 15.4 ng/mL (4.40-31.00); Globulin 2.3 g/dL (1.6-3.3); Potassium 4.1 mmol/L (3.5-5.5); Total Bilirubin 0.3 mg/dL (0.30-1.20); Total Protein 6.7 g/dL (6.2-8.2)
== END ==
LOC: BARWHC3 14:21
PROVIDERS: ATTEND Surgery
DX: E66.01 Morbid (severe) obesity due to excess calories (principal); F17.200 Nicotine dependence, unspecified, uncomplicated; Z68.29 Body mass index [BMI] 29.0-29.9, adult; Z91.040 Latex allergy status; Z91.02 Food additives allergy status
CPT/HCPCS: 80053; 82306; 82607; 82746; 83540; 84425; 85027; 97803; 99211

== ENCOUNTER → 2021-11-01 | Outpatient (CLI) | payer BC ==
[2021-11-01 14:49] VITALS: BP 130/85; PULSE 76; RESP 16; TEMP 98.5; BMI 28.2
--- NOTE | 2021-11-01 15:31 | P.BASOAP ---
Subjective Progress Note Date: 11/01/21 Principal diagnosis: Morbid obesity Patient returns for reevaluation. Last seen 09/13. Patient underwent sleeve gastrectomy 05/30. Constipation is improved. Still has mild umbilical discomfort when she is constipated. Also complaining of being cold and having some soreness at her tailbone. Still taking antacids daily. No acid reflux with that regimen. Great weight loss. Objective - Vital Signs Vital signs: Vital Signs Temp 98.5 F 11/01/21 14:47 Pulse 76 11/01/21 14:47 Resp 16 11/01/21 14:47 BP 130/85 11/01/21 14:47 Pulse Ox Intake & Output 10/31/21 11/01/21 11/01/21 18:59 06:59 18:59 Weight 86.636 kg - Exam Abdomen: Soft, mild umbilical tenderness, no hernia, nondistended Assessment/Plan (1) Morbid obesity with BMI of 45.0-49.9, adult Narrative/Plan: Patient continues to do well. Continue antiacids daily. Continue dietary and increase exercise volume. Monitor complaints of pain at the umbilicus and the tailbone for now. Follow-up 6 weeks. Check 6 month labs at that time. Plan: Date: 11/01/21 Initial Weight: 128.367 kg Initial BMI: 41.8 Current Weight: 86.636 kg Current BMI: 28.2 Type of Surgery: Total Volume in Band: Previous Volume: Volume Removed: Volume Added: Band Size:
== END ==
LOC: BARWHC3 14:33
PROVIDERS: ATTEND Surgery
DX: E66.01 Morbid (severe) obesity due to excess calories (principal); F17.200 Nicotine dependence, unspecified, uncomplicated; Z68.28 Body mass index [BMI] 28.0-28.9, adult; Z91.040 Latex allergy status; Z91.02 Food additives allergy status
CPT/HCPCS: 99211

== ENCOUNTER 2021-11-05 19:15 | Emergency (ER) | payer BC ==
[2021-11-05] MEDS ORDERED: MORPHINE SULFATE 4 MG/ML SYRINGE IVP STA (19:53)
[2021-11-05] MEDS ORDERED: ONDANSETRON 4 MG/2 ML VIAL IVP STA (19:53)
[2021-11-05] MEDS: SODIUM CHLORIDE 0.9% 500 ML 500 ML IV SCH ×2 (19:59→20:02)
[2021-11-05 20:07] LABS: Basophils % (A) 1 %; Eosinophils # (A) 0.1 k/uL (0-0.7); Eosinophils % (A) 2 %; HCT 32.8 % (34.0-46.0); HGB 10.5 gm/dL (11.4-16.0); Hypochromasia Slight; Lymphocytes # (A) 0.5 k/uL (1.0-4.8); Lymphocytes % (A) 15 %; MCH 28.4 pg (25.0-35.0); MCHC 32.1 g/dL (31.0-37.0); MCV 88.6 fL (80.0-100.0); Mean Platelet Volume 9.9; Monocytes # (A) 0.3 k/uL (0-1.0); Monocytes % (A) 8 %; Neutrophils # (A) 2.3 k/uL (1.3-7.7); Neutrophils % (A) 73 %; Platelet Count 166 k/uL (150-450); RDW 15.3 % (11.5-15.5); WBC 3.2 k/uL (3.8-10.6)
[2021-11-05 20:19] LABS: ALT 10 U/L (4-34); AST 20 U/L (14-36); African American GFR (CKD) >90 (>60 ml/min/1.73 sqM); Albumin 3.8 g/dL (3.5-5.0); Alkaline Phosphatase 45 U/L (38-126); Anion Gap 6 mmol/L; Blood Urea Nitrogen 10 mg/dL (7-17); Calcium 8.9 mg/dL (8.4-10.2); Carbon Dioxide 23 mmol/L (22-30); Chloride 108 mmol/L (98-107); Glucose 86 mg/dL (74-99); Non-African American GFR(CKD) 88 (>60 ml/min/1.73 sqM); Potassium 4.2 mmol/L (3.5-5.1); Sodium 137 mmol/L (137-145); Total Bilirubin 0.6 mg/dL (0.2-1.3); Total Protein 6.5 g/dL (6.3-8.2)
[2021-11-05 20:23] LABS: INR 1.2 (<1.2); Partial Thromboplastin Time 23.1 sec (22.0-30.0); Prothrombin Time 12.5 sec (9.0-12.0)
--- NOTE | 2021-11-05 20:50 | CT ---
EXAMINATION TYPE: CT lumbar spine wo con DATE OF EXAM: 11/05/2021 8:30 PM COMPARISON: None HISTORY: back pain following fall CT DLP: 944.2 mGycm Automated exposure control for dose reduction was used. Unenhanced CT of the lumbar spine was performed. Bone and soft tissue window settings are submitted as well as coronal and sagittal reconstructions. L1-L2: Normal disc space height. No disc herniation protrusion or central stenosis. No facet joint arthropathy. No evidence for foraminal encroachment. L2-L3: Normal disc space height. No disc herniation protrusion or central stenosis. No facet joint arthropathy. No evidence for foraminal encroachment. L3-L4: Normal disc space height. No disc herniation protrusion or central stenosis. No facet joint arthropathy. No evidence for foraminal encroachment. L4-L5: Normal disc space height. There is central disc bulging resulting in combination with facet jerri int arthropathy result in moderate to severe spinal canal stenosis. Bilateral facet joint arthropathy . No evidence for foraminal encroachment. L5-S1: Normal disc space height. No disc herniation protrusion or central stenosis. Bilateral facet joint arthropathy. No evidence for foraminal encroachment. Other: Surgical changes to the stomach are present. L4 bony islands present. IMPRESSION: 1. L4-L5 diffuse disc bulge with moderate to severe spinal canal stenosis. 2. No evidence for acute fracture the spinal canal is patent.
--- NOTE | 2021-11-05 20:53 | CT ---
EXAMINATION TYPE: CT pelvis wo con CT DLP: 353.4 mGycm, Automated exposure control for dose reduction was used. DATE OF EXAM: 11/05/2021 8:30 PM COMPARISON: None. CLINICAL INDICATION:Female, 36 years old with history of low back pain; fall; loss of bladder control , back pain following fall TECHNIQUE: Standard CT of the pelvis without IV or oral contrast. Lack of IV or oral contrast limit s evaluation of solid and hollow organ viscera. Coronal and sagittal reformats were performed. FINDINGS: KIDNEYS AND URETERS: No evidence of hydronephrosis or renal calculus. The ureters are unremarkable. PELVIS BLADDER: Unremarkable REPRODUCTIVE: Unremarkable. STOMACH AND BOWEL: No evidence of bowel obstruction. PERITONEUM: No evidence of pneumoperitoneum or free fluid. VASCULATURE: No evidence of aortic aneurysm. MUSCULOSKELETAL: No acute osseous abnormalities. There is diffuse disc bulge L4-L5 with moderate to s evere spinal canal stenosis. LYMPH NODES: No gross evidence for lymphadenopathy. SOFT TISSUE/ABDOMINAL WALL: Mild anasarca noted. IMPRESSION: 1. Please see dedicated CT CT lumbar spine for findings regarding the L4-L5 diffuse disc bulge with moderate to severe spinal canal stenosis. 2. No acute pelvic process.
[2021-11-05 21:43] LABS: Appearance,Urine Clear (Clear); Bilirubin,Urine Negative (Negative); Blood,Urine Negative (Negative); Color,Urine Light Yellow; Glucose,Urine (UA) Negative (Negative); Ketones,Urine Negative (Negative); Leukocyte Esterase,Urine Negative (Negative); Nitrite,Urine Negative (Negative); Protein,Urine Negative (Negative); Urobilinogen,Urine <2.0 mg/dL (<2.0)
[2021-11-05 22:18] VITALS: BP 129/78; PULSE 75; RESP 18; TEMP 100.4
--- NOTE | 2021-11-05 23:21 | ED ---
General Adult HPI - General Chief complaint: Fever Stated complaint: Seizure Time Seen by Provider: 11/05/21 19:34 Source: EMS Mode of arrival: EMS Limitations: no limitations - History of Present Illness Initial comments: 36 year-old female patient presents to the emergency department for evaluation after having a syncopal episode at home. Patient states she was standing there when she became very hot then woke up on the floor with people around her. States it was her second fall today. States the first one she did not pass out. States she did hit the bannister on the stairs. Denies hitting her head. She is currently reporting low back pain and spasms. She did lose bladder control. Denies saddle anesthesia. Denies radiating pain down her legs. Denies numbness or tingling to the lower extremities. Does report fever. Denies any cough, congestion, sore throat, or shortness of breath. Patient denies any recent rash, chest pain, abdominal pain, nausea, vomiting, diarrhea, constipation, hematuria, dysuria, urinary urgency, urinary frequency, headache, visual changes, or any other complaints. Denies chance of . - Related Data Home Medications Medication Instructions Recorded Confirmed Gabapentin 800 mg PO BID 03/11/21 11/02/21 Albuterol Inhaler [Ventolin Hfa 1 puff INHALATION DAILY 05/19/21 11/02/21 Inhaler] Iron 65 mg PO DAILY 06/30/21 11/02/21 Previous Rx's Medication Instructions Recorded Acetaminophen Tab [Tylenol Tab] 650 mg PO Q4H PRN #30 tablet 06/01/21 Omeprazole [PriLOSEC] 20 mg PO AC-BRKFST #90 cap 06/28/21 HYDROcodone/APAP 5-325MG [Jones 5] 1 each PO Q6HR PRN #12 tab 11/05/21 Allergies Allergy/AdvReac Type Severity Reaction Status Date / Time latex Allergy Rash/Hives Verified 11/05/21 19:29 artificial sweeteners Allergy Unknown Unknown Uncoded 11/05/21 19:29 Review of Systems ROS Statement: Those systems with pertinent positive or pertinent negative responses have been documented in the HPI. ROS Other: All systems not noted in ROS Statement are negative. Past Medical History Past Medical History: Asthma, Chest Pain / Angina, Hypertension, Osteoarthritis (OA), Sleep Apnea/CPAP/BIPAP, Thyroid Disorder Additional Past Medical History / Comment(s): Chronic back and knee pain, uses CPAP. History of Any Multi-Drug Resistant Organisms: None Reported Past Surgical History: Bariatric Surgery, Section, Orthopedic Surgery Additional Past Surgical History / Comment(s): Right knee surgery, thryoidectomy, D&C. sleeve gastrectomy 05-30-21 Past Anesthesia/Blood Transfusion Reactions: Motion Sickness, Postoperative Nausea & Vomiting (PONV) Past Psychological History: Anxiety Smoking Status: Current some day smoker Past Alcohol Use History: None Reported Past Drug Use History: None Reported - Past Family History Mother Family Medical History: Asthma Additional Family Medical History / Comment(s): History of a heart murmur. Father Family Medical History: Unable to Obtain Additional Family Medical History / Comment(s): Patient does not know anything about her father. Brother(s) Additional Family Medical History / Comment(s): Patient has 3 brothers and one brother has sickle cell trait. Patient does not have any sisters. Patient has 1 son with no major medical problems. General Exam Limitations: no limitations General appearance: alert, in no apparent distress, other (This is a well- developed, well-nourished adult female in mild distress related to pain.) Eye exam: Present: normal appearance, PERRL, EOMI. Absent: scleral icterus, conjunctival injection, periorbital swelling ENT exam: Present: normal exam, normal oropharynx, mucous membranes moist Respiratory exam: Present: normal lung sounds bilaterally. Absent: respiratory distress, wheezes, rales, rhonchi, stridor Cardiovascular Exam: Present: regular rate, normal rhythm, normal heart sounds. Absent: systolic murmur, diastolic murmur, rubs, gallop, clicks GI/Abdominal exam: Present: soft, normal bowel sounds. Absent: distended, tenderness, guarding, rebound, rigid Neurological exam: Present: alert, oriented X3, CN II-XII intact Psychiatric exam: Present: normal affect, normal mood Skin exam: Present: warm, dry, intact, normal color. Absent: rash Course Vital Signs 11/05/21 11/05/21 11/05/21 19:21 20:01 22:18 Temperature 101 F H 100.4 F H Pulse Rate 92 97 75 Respiratory 18 20 18 Rate Blood Pressure 167/107 144/73 129/78 O2 Sat by Pulse 99 98 98 Oximetry EKG Findings - EKG Comments: EKG Findings:: EKG obtained at 2044 shows normal sinus rhythm with a ventricular to 77, P return of a 154, QRS duration 86, QT 364, QTC 411. No evidence of ST elevation or depression. Medical Decision Making - Medical Decision Making 36-year-old female patient presented to the emergency department today after having a syncopal episode with loss of bladder control at home. She was febrile upon arrival. Labs reviewed and shows white blood cell count of 3.2, hemoglobin 10.5. She did test positive for COVID-19. Negative test. Did perf orm CT of the pelvis and lumbar spine which did show disc herniation at L4 to 5. No canal encroachment. I did discuss findings and results with her. She does feel comfortable being discharged home at this time. Return parameters were discussed in detail. She verbalizes understanding and agrees with this plan. My attending is Dr. Hart. - Lab Data Result diagrams: 11/05/21 19:45 11/05/21 19:53 Lab Results 11/05/21 11/05/21 11/05/21 Range/Units 19:45 19:53 19:53 WBC 3.2 L (3.8-10.6) k/uL RBC 3.70 L (3.80-5.40) m/uL Hgb 10.5 L (11.4-16.0) gm/dL Hct 32.8 L (34.0-46.0) % MCV 88.6 (80.0-100.0) fL MCH 28.4 (25.0-35.0) pg MCHC 32.1 (31.0-37.0) g/dL RDW 15.3 (11.5-15.5) % Plt Count 166 (150-450) k/uL MPV 9.9 Neutrophils % 73 % Lymphocytes % 15 % Monocytes % 8 % Eosinophils % 2 % Basophils % 1 % Neutrophils # 2.3 (1.3-7.7) k/uL Lymphocytes # 0.5 L (1.0-4.8) k/uL Monocytes # 0.3 (0-1.0) k/uL Eosinophils # 0.1 (0-0.7) k/uL Basophils # 0.0 (0-0.2) k/uL Hypochromasia Slight PT 12.5 H (9.0-12.0) sec INR 1.2 H (<1.2) APTT 23.1 (22.0-30.0) sec Sodium 137 (137-145) mmol/L Potassium 4.2 (3.5-5.1) mmol/L Chloride 108 H (98-107) mmol/L Carbon Dioxide 23 (22-30) mmol/L Anion Gap 6 mmol/L BUN 10 (7-17) mg/dL Creatinine 0.84 (0.52-1.04) mg/dL Est GFR (CKD-EPI)AfAm >90 (>60 ml/min/1.73 sqM) Est GFR (CKD-EPI)NonAf 88 (>60 ml/min/1.73 sqM) Glucose 86 (74-99) mg/dL Plasma Lactic Acid Oleg (0.7-2.0) mmol/L Calcium 8.9 (8.4-10.2) mg/dL Total Bilirubin 0.6 (0.2-1.3) mg/dL AST 20 (14-36) U/L ALT 10 (4-34) U/L Alkaline Phosphatase 45 (38-126) U/L Total Protein 6.5 (6.3-8.2) g/dL Albumin 3.8 (3.5-5.0) g/dL Urine Color Urine Appearance (Clear) Urine pH (5.0-8.0) Ur Specific Hoskins (1.001-1.035) Urine Protein (Negative) Urine Glucose (UA) (Negative) Urine Ketones (Negative) Urine Blood (Negative) Urine Nitrite (Negative) Urine Bilirubin (Negative) Urine Urobilinogen (<2.0) mg/dL Ur Leukocyte Esterase (Negative) Urine HCG, Qual (Not Detectd) Coronavirus (PCR) (Not Detectd) 11/05/21 11/05/21 11/05/21 Range/Units 19:53 19:53 20:45 WBC (3.8-10.6) k/uL RBC (3.80-5.40) m/uL Hgb (11.4-16.0) gm/dL Hct (34.0-46.0) % MCV (80.0-100.0) fL MCH (25.0-35.0) pg MCHC (31.0-37.0) g/dL RDW (11.5-15.5) % Plt Count (150-450) k/uL MPV Neutrophils % % Lymphocytes % % Monocytes % % Eosinophils % % Basophils % % Neutrophils # (1.3-7.7) k/uL Lymphocytes # (1.0-4.8) k/uL Monocytes # (0-1.0) k/uL Eosinophils # (0-0.7) k/uL Basophils # (0-0.2) k/uL Hypochromasia PT (9.0-12.0) sec INR (<1.2) APTT (22.0-30.0) sec Sodium (137-145) mmol/L Potassium (3.5-5.1) mmol/L Chloride (98-107) mmol/L Carbon Dioxide (22-30) mmol/L Anion Gap mmol/L BUN (7-17) mg/dL Creatinine (0.52-1.04) mg/dL Est GFR (CKD-EPI)AfAm (>60 ml/min/1.73 sqM) Est GFR (CKD-EPI)NonAf (>60 ml/min/1.73 sqM) Glucose (74-99) mg/dL Plasma Lactic Acid Oleg 1.0 (0.7-2.0) mmol/L Calcium (8.4-10.2) mg/dL Total Bilirubin (0.2-1.3) mg/dL AST (14-36) U/L ALT (4-34) U/L Alkaline Phosphatase (38-126) U/L Total Protein (6.3-8.2) g/dL Albumin (3.5-5.0) g/dL Urine Color Light Yellow Urine Appearance Clear (Clear) Urine pH 7.0 (5.0-8.0) Ur Specific Hoskins 1.010 (1.001-1.035) Urine Protein Negative (Negative) Urine Glucose (UA) Negative (Negative) Urine Ketones Negative (Negative) Urine Blood Negative (Negative) Urine Nitrite Negative (Negative) Urine Bilirubin Negative (Negative) Urine Urobilinogen <2.0 (<2.0) mg/dL Ur Leukocyte Esterase Negative (Negative) Urine HCG, Qual (Not Detectd) Coronavirus (PCR) Detected A (Not Detectd) 11/05/21 Range/Units 20:45 WBC (3.8-10.6) k/uL RBC (3.80-5.40) m/uL Hgb (11.4-16.0) gm/dL Hct (34.0-46.0) % MCV (80.0-100.0) fL MCH (25.0-35.0) pg MCHC (31.0-37.0) g/dL RDW (11.5-15.5) % Plt Count (150-450) k/uL MPV Neutrophils % % Lymphocytes % % Monocytes % % Eosinophils % % Basophils % % Neutrophils # (1.3-7.7) k/uL Lymphocytes # (1.0-4.8) k/uL Monocytes # (0-1.0) k/uL Eosinophils # (0-0.7) k/uL Basophils # (0-0.2) k/uL Hypochromasia PT (9.0-12.0) sec INR (<1.2) APTT (22.0-30.0) sec Sodium (137-145) mmol/L Potassium (3.5-5.1) mmol/L Chloride (98-107) mmol/L Carbon Dioxide (22-30) mmol/L Anion Gap mmol/L BUN (7-17) mg/dL Creatinine (0.52-1.04) mg/dL Est GFR (CKD-EPI)AfAm (>60 ml/min/1.73 sqM) Est GFR (CKD-EPI)NonAf (>60 ml/min/1.73 sqM) Glucose (74-99) mg/dL Plasma Lactic Acid Oleg (0.7-2.0) mmol/L Calcium (8.4-10.2) mg/dL Total Bilirubin (0.2-1.3) mg/dL AST (14-36) U/L ALT (4-34) U/L Alkaline Phosphatase (38-126) U/L Total Protein (6.3-8.2) g/dL Albumin (3.5-5.0) g/dL Urine Color Urine Appearance (Clear) Urine pH (5.0-8.0) Ur Specific Hoskins (1.001-1.035) Urine Protein (Negative) Urine Glucose (UA) (Negative) Urine Ketones (Negative) Urine Blood (Negative) Urine Nitrite (Negative) Urine Bilirubin (Negative) Urine Urobilinogen (<2.0) mg/dL Ur Leukocyte Esterase (Negative) Urine HCG, Qual Not Detected (Not Detectd) Coronavirus (PCR) (Not Detectd) - Radiology Data Radiology results: report reviewed, image reviewed CT lumbar spine without contrast was obtained. Report was reviewed in its entirety. Impression by Dr. Douglas shows L4 to 5 diffuse disc bulge with mod erate to severe spinal canal stenosis. No evidence for acute fracture of the spinal canals pain. CT pelvis without contrast was obtained. Report was reviewed in its entirety. Impression by Dr. Douglas shows no acute pelvic process. Disposition Clinical Impression: Syncope, Herniation of intervertebral disc between L4 and L5, COVID-19 Disposition: HOME SELF-CARE Condition: Good Instructions (If sedation given, give patient instructions): Fever in Adults (ED), Syncope (ED), Back Pain (ED) Additional Instructions: Tips to help you feel better: -Maintain adequate fluid intake - especially water. -Rest, you are healing your body will require extra sleep. -Eat even if you do not feel like it - broth, jello, toast are fine if you cannot eat full meals. -Take tylenol and motrin alternating (if you have no allergies or have not been instructed to avoid these medications) to help with body aches and fevers. -Obtain over the counter vitamin C, zinc, and vitamin D3. -Take medications as prescribed. Follow-up with your primary care physician for recheck in 1-2 days. Return for any new, worsening, or concerning symptoms. Return immediately if he has bowel or bladder control, developed numbness to legs, or have difficulty urinating. Prescriptions: HYDROcodone/APAP 5-325MG [Jones 5] 1 each PO Q6HR PRN #12 tab PRN Reason: Pain Is patient prescribed a controlled substance at d/c from ED?: No Referrals: Eugene Lucero MD [Primary Care Provider] - 1-2 days Time of Disposition: 23:21
[2021-11-05] MEDS ORDERED: traMADol 50 MG STARTER PACK 3 TAB BTL PO STA (23:29)
== END 2021-11-05 23:47 | disposition home or self-care (01) ==
LOC: EC 19:15
DX: U07.1 COVID-19 (principal); M51.26 Other intervertebral disc displacement, lumbar region; R55 Syncope and collapse; J45.909 Unspecified asthma, uncomplicated; I10 Essential (primary) hypertension; M19.90 Unspecified osteoarthritis, unspecified site; E07.9 Disorder of thyroid, unspecified; F41.9 Anxiety disorder, unspecified; F17.200 Nicotine dependence, unspecified, uncomplicated; Z91.040 Latex allergy status; Z98.84 Bariatric surgery status
CPT/HCPCS: 99284; 96374; 96375; 96361 ×4; 36415; 93005; 80053; 83605; 85025; 85610; 85730; 81003; 81025; 87635; 72192; 72131; J2270; J2405

== ENCOUNTER → 2021-11-30 | Outpatient (CLI) | payer OTHER ==
--- NOTE | 2021-11-30 11:41 | XR ---
EXAMINATION TYPE: XR chest 2V DATE OF EXAM: 11/30/2021 COMPARISON: 11/10/2019 HISTORY: 36-year-old female TB screening TECHNIQUE: Frontal and lateral views FINDINGS: The cardiomediastinal silhouette, aorta, and pulmonary vasculature are within normal limits. Lungs an d pleural spaces are clear. IMPRESSION: No acute cardiopulmonary process.
== END | disposition home or self-care (01) ==
LOC: RADXRMAIN 09:48
PROVIDERS: ATTEND Emergency Medicine
DX: Z11.1 Encounter for screening for respiratory tuberculosis (principal)
CPT/HCPCS: 71046

== ENCOUNTER → 2021-11-30 | Outpatient (CLI) | payer BC ==
--- NOTE | 2021-11-30 18:09 | EEG ---
ELECTROENCEPHALOGRAM REPORT DATE OF SERVICE: 11/30/2021 PREAMBLE: This is a 36-year-old female with a syncopal spell. CURRENT MEDICATIONS: Gabapentin, [place], omeprazole, calcium and probiotic. EEG FINDINGS: This is a 21-channel digital EEG recorded with video component, utilizing 10/20 international system with referential and bipolar montages. Background consists of well developed, well regulated, moderate voltage activity in 9-10 hertz alpha. Background is posterior-dominant and reactive to eye opening and closing. Frequent low- voltage fast beta activity is seen in the frontal region. Photic driving response was not clearly seen. Drowsiness and stage II sleep were seen with presence of bilaterally symmetric theta frequency rhythm, with K complexes and sleep spindles. No focal or generalized epileptiform activity was seen. EKG channel showed no obvious arrhythmia. IMPRESSION: This is a normal EEG during wakefulness, drowsiness and brief stage II sleep. No epileptiform activity was seen. MMROSIEL / IJN: [id number] /
== END ==
LOC: NEUROMAIN 08:07
PROVIDERS: ATTEND Internal Medicine
DX: R55 Syncope and collapse (principal); F17.200 Nicotine dependence, unspecified, uncomplicated; Z91.040 Latex allergy status; Z91.02 Food additives allergy status
CPT/HCPCS: 95816

== ENCOUNTER → 2021-12-13 | Outpatient (CLI) | payer BC ==
[2021-12-13 15:24] VITALS: BP 123/68; PULSE 90; RESP 16; TEMP 98.5; BMI 26.9
--- NOTE | 2021-12-13 15:41 | P.BASOAP ---
Subjective Progress Note Date: 12/13/21 Principal diagnosis: morbid obesity Patient returns for recheck. She was last seen November 01. Patient was in the ER 4 days later with Covid. Patient recovering from that still. Still having some constipation issues. No rectal bleeding or melena. Still has some mild soreness on her tailbone. She has been for 6 month labs. Patient says she is nervous about taking more MiraLAX because she did have some fecal incontinence when she previously increased her dosage. Objective - Vital Signs Vital signs: Vital Signs Temp 98.5 F 12/13/21 15:22 Pulse 90 12/13/21 15:22 Resp 16 12/13/21 15:22 BP 123/68 12/13/21 15: Pulse Ox Intake & Output 12/12/21 12/13/21 12/13/21 18:59 06:59 18:59 Weight 82.554 kg - Exam Abdomen: Soft, nontender, nondistended Assessment/Plan (1) Morbid obesity with BMI of 45.0-49.9, adult Narrative/Plan: Patient doing fairly well at this time. Discussed increasing the MiraLAX slightly and trying to get off of some of the other constipation medications she is taking intermittently. Check 6 month labs at this time. Follow-up 6-8 weeks. Plan: Date: 12/13/21 Initial Weight: 128.367 kg Initial BMI: 41.8 Current Weight: 82.554 kg Current BMI: 26.9 Type of Surgery: Total Volume in Band: Previous Volume: Volume Removed: Volume Added: Band Size:
[2021-12-14 01:30] LABS: African American GFR (CKD) 122.1 (60.0-200.0); Albumin 4.2 g/dL (3.8-4.9); Albumin/Globulin Ratio 1.87 (1.60-3.17); Anion Gap 12.9 mmol/L (10.00-18.00); BUN/Creat Ratio 12.97 Ratio (12.00-20.00); Blood Urea Nitrogen 9.4 mg/dL (9.0-27.0); Calcium 9.1 mg/dL (8.7-10.3); Carbon Dioxide 22.6 mmol/L (20.0-27.5); Globulin 2.3 g/dL (1.6-3.3); Non-African American GFR(CKD) 105.3 (60.0-200.0); Potassium 4.2 mmol/L (3.5-5.5); Total Bilirubin 0.2 mg/dL (0.30-1.20); Total Protein 6.5 g/dL (6.2-8.2)
[2021-12-14 02:08] LABS: HCT 32.7 % (37.2-46.3); HGB 10.1 g/dL (12.0-15.0); MCH 26.7 pg (27.0-32.0); MCHC 30.9 g/dL (32.0-37.0); MCV 86.5 fL (80.0-97.0); Mean Platelet Volume 13.2 fL (9.5-12.2); NRBC Per 100 WBC 0 /100 WBCS (0.0-0.0); Platelet Count 188 X 10*3/uL (140-440); RBC 3.78 X 10*6/uL (4.10-5.20); RDW 16.1 % (11.5-14.5); WBC 6.16 X 10*3/uL (4.50-10.00)
[2021-12-14 02:21] LABS: Folate, Serum 17.5 ng/mL (4.40-31.00)
== END ==
LOC: BARWHC3 15:00
PROVIDERS: ATTEND Surgery
DX: E66.01 Morbid (severe) obesity due to excess calories (principal); K59.09 Other constipation; K90.89 Other intestinal malabsorption; E55.9 Vitamin D deficiency, unspecified; Z68.26 Body mass index [BMI] 26.0-26.9, adult; Z91.040 Latex allergy status; Z91.02 Food additives allergy status; F17.200 Nicotine dependence, unspecified, uncomplicated
CPT/HCPCS: 36415; 80053; 82306; 82607; 82746; 83540; 84425; 85027; 99211

== ENCOUNTER → 2022-05-16 | Outpatient (CLI) | payer BC ==
[2022-05-16 15:40] VITALS: BP 134/80; PULSE 73; RESP 16; TEMP 99; BMI 25.9
--- NOTE | 2022-05-16 15:56 | P.BASOAP ---
Subjective Progress Note Date: 05/16/22 Principal diagnosis: Morbid obesity Patient returns for recheck. She is 1 year post sleeve gastrectomy. Doing well. Antiacids being used to control her reflux symptoms. Still constipated. Says that she gets issues with nausea when she takes too much MiraLAX. She has lost 6 pounds since her last visit. BMI 25.9. Still having some back pain. Takes gabapentin and [place] for that. She is due for lab work. Objective - Vital Signs Vital signs: Vital Signs Temp 99 F 05/16/22 15:37 Pulse 73 05/16/22 15:37 Resp 16 05/16/22 15:37 BP 134/80 05/16/22 15:37 Pulse Ox FiO2 Intake & Output 05/15/22 05/16/22 05/16/22 18:59 06:59 18:59 Weight 79.832 kg - Exam Physical exam: General: Well-developed, well-nourished HEENT: Normocephalic, sclerae nonicteric Abdomen: Nontender, nondistended Extremities: No edema Neuro: Alert and oriented Assessment/Plan (1) Morbid obesity with BMI of 45.0-49.9, adult Narrative/Plan: Patient doing well after sleeve gastrectomy. We'll check one year labs at this time. Continue antiacids. Follow-up 6 months. Discussed options of prescripti on Linzess for her chronic constipation. She will consider. Plan: Date: 05/16/22 Initial Weight: 128.367 kg Initial BMI: 41.8 Current Weight: 79.832 kg Current BMI: 25.9 Type of Surgery: Vertical Sleeve Gastrectomy Total Volume in Band: Previous Volume: Volume Removed: Volume Added: Band Size:
[2022-05-16 22:35] LABS: Basophils # (A) 0.03 X 10*3/uL (0.00-0.10); Basophils % (A) 0.6 %; HCT 32.8 % (37.2-46.3); HGB 10.3 g/dL (12.0-15.0); Immature Grans, Automated 0.2 %; Lymphocytes # (A) 1.91 X 10*3/uL (0.90-5.00); Lymphocytes % (A) 37.3 %; MCH 27.5 pg (27.0-32.0); MCHC 31.4 g/dL (32.0-37.0); MCV 87.7 fL (80.0-97.0); Mean Platelet Volume 12.5 fL (9.5-12.2); Monocytes # (A) 0.26 X 10*3/uL (0.20-1.00); Monocytes % (A) 5.1 %; NRBC Per 100 WBC 0 /100 WBCS (0.0-0.0); Neutrophils # (A) 2.81 X 10*3/uL (1.80-7.70); Neutrophils % (A) 54.8 %; Platelet Count 211 X 10*3/uL (140-440); RBC 3.74 X 10*6/uL (4.10-5.20); RDW 13.2 % (11.5-14.5); WBC 5.12 X 10*3/uL (4.50-10.00)
[2022-05-16 23:36] LABS: African American GFR (CKD) 115.3 (60.0-200.0); Albumin 4.4 g/dL (3.8-4.9); Anion Gap 10.8 mmol/L (10.00-18.00); BUN/Creat Ratio 14.74 Ratio (12.00-20.00); Blood Urea Nitrogen 11.2 mg/dL (9.0-27.0); Calcium 9.2 mg/dL (8.7-10.3); Carbon Dioxide 22.7 mmol/L (20.0-27.5); Globulin 2.2 g/dL (1.6-3.3); Non-African American GFR(CKD) 99.5 (60.0-200.0); Total Bilirubin 0.3 mg/dL (0.30-1.20); Total Protein 6.5 g/dL (6.2-8.2)
== END ==
LOC: BARWHC3 15:29
PROVIDERS: ATTEND Surgery
DX: E66.01 Morbid (severe) obesity due to excess calories (principal); E55.9 Vitamin D deficiency, unspecified; K90.89 Other intestinal malabsorption; F17.200 Nicotine dependence, unspecified, uncomplicated; K21.9 Gastro-esophageal reflux disease without esophagitis; Z68.42 Body mass index [BMI] 45.0-49.9, adult; Z98.84 Bariatric surgery status; Z91.040 Latex allergy status
CPT/HCPCS: 80053; 82306; 82607; 82746; 83540; 84425; 85025; 99211

== ENCOUNTER → 2022-05-16 | Outpatient (CLI) | payer BC | END | disposition home or self-care (01) | LOC: LABWHC1 16:27 | PROVIDERS: ATTEND Internal Medicine | DX: I10 Essential (primary) hypertension (principal); N20.0 Calculus of kidney; E78.2 Mixed hyperlipidemia | CPT/HCPCS: 36415; 83970; 84443 ==

== ENCOUNTER → 2022-10-31 | Outpatient (CLI) | payer BC, OTHER ==
[2022-10-31 13:24] VITALS: BP 138/70; PULSE 84; RESP 16; BMI 25.1
--- NOTE | 2022-10-31 15:09 | P.BASOAP ---
Subjective Progress Note Date: 10/31/22 Principal diagnosis: Morbid obesity 37-year-old female returns for recheck. She was last seen in April. Remains on antiacids daily and while taking that has no heartburn symptoms. Bowel activity is improved. She lost 6 more pounds. She is working a second job now. Objective - Vital Signs Vital signs: Vital Signs Temp Pulse 84 10/31/22 13:22 Resp 16 10/31/22 13:22 BP 138/70 10/31/22 13:22 Pulse Ox FiO2 Intake & Output 10/30/22 10/31/22 10/31/22 18:59 06:59 18:59 Weight 77.111 kg - Exam Abdomen: Soft, nontender, nondistended Assessment/Plan (1) GERD (gastroesophageal reflux disease) Narrative/Plan: Patient doing well at this time. Continue dietary and exercise regimen. Follow-up in May. We'll check annual labs at that time. Plan: Date: 10/31/22 Initial Weight: 128.367 kg Initial BMI: 41.8 Current Weight: 77.111 kg Current BMI: 25.1 Type of Surgery: Vertical Sleeve Gastrectomy Total Volume in Band: Previous Volume: Volume Removed: Volume Added: Band Size:
== END ==
LOC: BARWHC3 13:02
PROVIDERS: ATTEND Surgery
DX: E66.01 Morbid (severe) obesity due to excess calories (principal); Z68.25 Body mass index [BMI] 25.0-25.9, adult; Z91.040 Latex allergy status; F17.200 Nicotine dependence, unspecified, uncomplicated; Z91.018 Allergy to other foods
CPT/HCPCS: 99211

== ENCOUNTER 2023-08-05 16:53 | Emergency (ER) | payer BC ==
[2023-08-05] MEDS ORDERED: ALPRAZolam 0.25 MG TAB PO STA (20:16)
[2023-08-05] MEDS ORDERED: ACETAMINOPHEN TAB 500 MG TAB PO STA (20:16)
--- NOTE | 2023-08-05 20:40 | ED ---
Psych HPI - General Chief Complaint: Psychiatric Symptoms Stated Complaint: personal Time Seen by Provider: 08/05/23 17:00 Source: patient Mode of arrival: ambulatory - History of Present Illness Initial Comments: 37-year-old female presents emergency department with depression and suicidal ideations. States that she has been diagnosed with anxiety. She does not take any medications currently. She does not follow with a therapist or psychiatrist. States that as a recently she has felt extremely depressed to the point where she feels suicidal. She has a plan of driving her car off the road into a ditch. States that she had to "swallow her pride" and bring herself into the emergency department because of her symptoms. Reports that her boyfriend has been telling her that she is a bad mother. She admits that she smokes marijuana. Denies use of alcohol or other drugs. She denies homicidal ideations. No hallucinations. She has not done anything in an attempt to harm herself. No other alleviating, precipitating or modifying factors - Related Data Home Medications Medication Instructions Recorded Confirmed Calcium Citrate 250 mg PO DAILY 08/05/23 08/05/23 Gabapentin [Neurontin] 800 mg PO BID 08/05/23 08/05/23 HYDROcodone/APAP 7.5-325MG [[place] 1 tab PO BID 08/05/23 08/05/23 7.5-325] Omeprazole [PriLOSEC] 20 mg PO DAILY 08/05/23 08/05/23 Ondansetron [Zofran] 4 mg PO Q8HR PRN 08/05/23 08/05/23 Allergies Allergy/AdvReac Type Severity Reaction Status Date / Time latex Allergy Rash/Hives Verified 08/05/23 20:33 artificial sweeteners Allergy Unknown Unknown Uncoded 08/05/23 20:33 Review of Systems ROS Statement: Those systems with pertinent positive or pertinent negative responses have been documented in the HPI. ROS Other: All systems not noted in ROS Statement are negative. Past Medical History Past Medical History: Asthma, Fibromyalgia, GERD/Reflux, Osteoarthritis (OA), Sleep Apnea/CPAP/BIPAP, Thyroid Disorder Additional Past Medical History / Comment(s): Chronic back and knee pain, no CPAP, migraines, irregular bowel movements, anemia History of Any Multi-Drug Resistant Organisms: None Reported Past Surgical History: Bariatric Surgery, Section, Orthopedic Surgery Additional Past Surgical History / Comment(s): Right knee arthroscopy, partial thyroidectomy, D&C. sleeve gastrectomy 05-30-21 Past Anesthesia/Blood Transfusion Reactions: Motion Sickness, Postoperative Nausea & Vomiting (PONV) Additional Past Anesthesia/Blood Transfusion Reaction / Comment(s): "anesthesia makes me hyper" Past Psychological History: Anxiety Smoking Status: Current every day smoker Past Alcohol Use History: None Reported Past Drug Use History: Marijuana - Past Family History Mother Family Medical History: No Reported History Additional Family Medical History / Comment(s): History of a heart murmur. Father Family Medical History: Unable to Obtain Additional Family Medical History / Comment(s): Patient does not know anything about her father. Brother(s) Additional Family Medical History / Comment(s): Patient has 3 brothers and one brother has sickle cell trait. Patient does not have any sisters. Patient has 1 son with no major medical problems. General Exam Limitations: no limitations General appearance: alert, in no apparent distress Head exam: Present: atraumatic, normocephalic, normal inspection Eye exam: Present: normal appearance, PERRL, EOMI. Absent: scleral icterus, conjunctival injection, periorbital swelling ENT exam: Present: normal exam, mucous membranes moist Neck exam: Present: normal inspection. Absent: tenderness, meningismus, lymphadenopathy Respiratory exam: Present: normal lung sounds bilaterally. Absent: respiratory distress, wheezes, rales, rhonchi, stridor Cardiovascular Exam: Present: regular rate, normal rhythm, normal heart sounds. Absent: systolic murmur, diastolic murmur, rubs, gallop, clicks GI/Abdominal exam: Present: soft, normal bowel sounds. Absent: distended, tenderness, guarding, rebound, rigid Extremities exam: Present: normal inspection, full ROM, normal capillary refill. Absent: tenderness, pedal edema, joint swelling, calf tenderness Back exam: Present: normal inspection Neurological exam: Present: alert, oriented X3, CN II-XII intact Psychiatric exam: Present: depressed, suicidal ideation Skin exam: Present: warm, dry, intact, normal color. Absent: rash Course Vital Signs 08/05/23 08/06/23 08/06/23 16:58 06:55 11:29 Temperature 98.1 F 97.6 F 98.0 F Pulse Rate 89 62 69 Respiratory 20 18 18 Rate Blood Pressure 154/91 110/55 144/82 O2 Sat by Pulse 99 100 98 Oximetry 08/06/23 22:00 Temperature 98.2 F Pulse Rate 69 Respiratory 18 Rate Blood Pressure 132/74 O2 Sat by Pulse 99 Oximetry Medical Decision Making - Medical Decision Making Was pt. sent in by a medical professional or institution (, PA, CERTIFIED ETHICAL HACKER, urgent care, hospital, or [place] [facility] facility...) When possible be specific @ -No Did you speak to anyone other than the patient for history (EMS, parent, family, police, friend...)? What history was obtained from this source @ -No Did you review nursing and triage notes (agree or disagree)? Why? @ -I reviewed and agree with nursing and triage notes Were old charts reviewed (outside hosp., previous admission, EMS record, old EKG, old radiological studies, urgent care reports/EKG's, [place] health care facility records)? Report findings @ -No old charts were reviewed Differential Diagnosis (chest pain, altered mental status, abdominal pain women, abdominal pain men, vaginal bleeding, weakness, fever, dyspnea, syncope, headache, dizziness, GI bleed, back pain, seizure, CVA, palpatations, mental health, musculoskeletal)? @ -Differential Mental Health Depression, anxiety, bipolar, psychosis, schizophrenia, borderline personality, situational depression, adjustment disorder, behavioral disorder, brain tumor, malingering, substance abuse, encephalopathy, medication reaction, dementia, hypothyroidism, degenerative neurologic disorder, lupus.... This is not meant to be all-inclusive list EKG interpreted by me (3pts min.). @ -Completed X-rays interpreted by me (1pt min.). @ -None done CT interpreted by me (1pt min.). @ -None done U/S interpreted by me (1pt. min.). @ -None done What testing was considered but not performed or refused? (CT, X-rays, U/S, labs)? Why? @ -None What meds were considered but not given or refused? Why? @ -None Did you discuss the management of the patient with other professionals (professionals i.e. , PA, CERTIFIED ETHICAL HACKER, lab, RT, psych nurse, social sciences department chair, haulage engine operator, teacher, staff electronic warfare officer, embedded case manager)? Give summary @ -Spoke with Neyda the EPS nurse Was smoking cessation discussed for >3mins.? @ -No Was critical care preformed (if so, how long)? @ -No Were there social determinants of health that impacted care today? How? (Homelessness, low income, unemployed, alcoholism, drug addiction, transportation, low edu. Level, literacy, decrease access to med. care, halfway, rehab)? @ -No Was there de-escalation of care discussed even if they declined (Discuss DNR or withdrawal of care, Hospice)? DNR status @ -No What co-morbidities impacted this encounter? (DM, HTN, Smoking, COPD, CAD, Can cer, CVA, ARF, Chemo, Hep., AIDS, mental health diagnosis, sleep apnea, morbid obesity)? @ -None Was patient admitted / discharged? Hospital course, mention meds given and route, prescriptions, significant lab abnormalities, going to OR and other pertinent info. @ -Upon arrival patient was placed in room 28. Thorough history and physical e xam was performed. Patient is medically clear to be evaluated by EPS. I did inform Neyda of the patient's presence in the emergency department. We are awaiting formal EPS evaluation Undiagnosed new problem with uncertain prognosis? @ -Yes Drug Therapy requiring intensive monitoring for toxicity (Heparin, Nitro, Insulin, Cardizem)? @ -No Were any procedures done? @ -No Diagnosis/symptom? @ -Acute depression, suicidal ideations Acute, or Chronic, or Acute on Chronic? @ -Acute Uncomplicated (without systemic symptoms) or Complicated (systemic symptoms)? @ -Complicated Side effects of treatment? @ -No Exacerbation, Progression, or Severe Exacerbation? @ -No Poses a threat to life or bodily function? How? (Chest pain, USA, CT, pneumonia, PE, COPD, DKA, ARF, appy, cholecystitis, CVA, Diverticulitis, Homicidal, Suicidal, threat to staff... and all critical care pts) @ -yes, she is actively suicidal - Lab Data Result diagrams: 08/06/23 16:26 08/06/23 16:26 Lab Results 08/05/23 08/05/23 08/06/23 Range/Units 20:26 20:26 16:26 WBC 2.8 L (3.8-10.6) k/uL RBC 3.52 L (3.80-5.40) m/uL Hgb 11.0 L (11.4-16.0) gm/dL Hct 32.3 L (34.0-46.0) % MCV 91.7 (80.0-100.0) fL MCH 31.2 (25.0-35.0) pg MCHC 34.0 (31.0-37.0) g/dL RDW 15.1 (11.5-15.5) % Plt Count 188 (150-450) k/uL MPV 9.6 Sodium (137-145) mmol/L Potassium (3.5-5.1) mmol/L Chloride (98-107) mmol/L Carbon Dioxide (22-30) mmol/L Anion Gap mmol/L BUN (7-17) mg/dL Creatinine (0.52-1.04) mg/dL Est GFR (CKD-EPI)AfAm (>60 ml/min/1.73 sqM) Est GFR (CKD-EPI)NonAf (>60 ml/min/1.73 sqM) Glucose (74-99) mg/dL Calcium (8.4-10.2) mg/dL Urine Color Yellow Urine Appearance Clear (Clear) Urine pH 6.0 (5.0-8.0) Ur Specific [place] 1.020 (1.001-1.035) Urine Protein Negative (Negative) Urine Glucose (UA) Negative (Negative) Urine Ketones Negative (Negative) Urine Blood Negative (Negative) Urine Nitrite Negative (Negative) Urine Bilirubin Negative (Negative) Urine Urobilinogen 6.0 (<2.0) mg/dL Ur Leukocyte Esterase Negative (Negative) Urine HCG, Qual Not Detected (Not Detectd) Urine Opiates Screen Not Detected (NotDetected) Ur Oxycodone Screen Not Detected (NotDetected) Urine Methadone Screen Not Detected (NotDetected) Ur Propoxyphene Screen Not Detected (NotDetected) Ur Barbiturates Screen Not Detected (NotDetected) U Tricyclic Antidepress Not Detected (NotDetected) Ur Phencyclidine Scrn Not Detected (NotDetected) Ur Amphetamines Screen Not Detected (NotDetected) U Methamphetamines Scrn Not Detected (NotDetected) U Benzodiazepines Scrn Not Detected (NotDetected) Urine Cocaine Screen Not Detected (NotDetected) U Marijuana (THC) Screen Detected H (NotDetected) 08/06/23 Range/Units 16:26 WBC (3.8-10.6) k/uL RBC (3.80-5.40) m/uL Hgb (11.4-16.0) gm/dL Hct (34.0-46.0) % MCV (80.0-100.0) fL MCH (25.0-35.0) pg MCHC (31.0-37.0) g/dL RDW (11.5-15.5) % Plt Count (150-450) k/uL MPV Sodium 136 L (137-145) mmol/L Potassium 5.0 (3.5-5.1) mmol/L Chloride 107 (98-107) mmol/L Carbon Dioxide 24 (22-30) mmol/L Anion Gap 5 mmol/L BUN 6 L (7-17) mg/dL Creatinine 0.56 (0.52-1.04) mg/dL Est GFR (CKD-EPI)AfAm >90 (>60 ml/min/1.73 sqM) Est GFR (CKD-EPI)NonAf >90 (>60 ml/min/1.73 sqM) Glucose 106 H (74-99) mg/dL Calcium 9.0 (8.4-10.2) mg/dL Urine Color Urine Appearance (Clear) Urine pH (5.0-8.0) Ur Specific [place] (1.001-1.035) Urine Protein (Negative) Urine Glucose (UA) (Negative) Urine Ketones (Negative) Urine Blood (Negative) Urine Nitrite (Negative) Urine Bilirubin (Negative) Urine Urobilinogen (<2.0) mg/dL Ur Leukocyte Esterase (Negative) Urine HCG, Qual (Not Detectd) Urine Opiates Screen (NotDetected) Ur Oxycodone Screen (NotDetected) Urine Methadone Screen (NotDetected) Ur Propoxyphene Screen (NotDetected) Ur Barbiturates Screen (NotDetected) U Tricyclic Antidepress (NotDetected) Ur Phencyclidine Scrn (NotDetected) Ur Amphetamines Screen (NotDetected) U Methamphetamines Scrn (NotDetected) U Benzodiazepines Scrn (NotDetected) Urine Cocaine Screen (NotDetected) U Marijuana (THC) Screen (NotDetected) Disposition Clinical Impression: Depression Disposition: TRANSFER TO PSYCH HOSP/UNIT Condition: Stable Is patient prescribed a controlled substance at d/c from ED?: No Referrals: Eugene Lucero MD [Primary Care Provider] - 1-2 days
[2023-08-05 20:44] LABS: Appearance,Urine Clear (Clear); Bilirubin,Urine Negative (Negative); Blood,Urine Negative (Negative); Color,Urine Yellow; Glucose,Urine (UA) Negative (Negative); Ketones,Urine Negative (Negative); Leukocyte Esterase,Urine Negative (Negative); Nitrite,Urine Negative (Negative); Protein,Urine Negative (Negative)
[2023-08-05 20:56] LABS: Amphetamine Screen,Urine Not Detected (NotDetected); Barbiturate Screen,Urine Not Detected (NotDetected); Benzodiazepines Screen,Urine Not Detected (NotDetected); Cocaine Screen,Urine Not Detected (NotDetected); Methadone Screen, Urine Not Detected (NotDetected); Opiate Screen,Urine Not Detected (NotDetected); Oxycodone Screen, Urine Not Detected (NotDetected); Phencyclidine Screen,Urine Not Detected (NotDetected); Tricyclic Antidepressant,Urine Not Detected (NotDetected); Urn Cannabinoid Scrn Detected (NotDetected)
[2023-08-06] MEDS: LORazepam 1 MG TAB PO PRN ×3 (05:36→21:59)
[2023-08-06 07:10] VITALS: RESP 18
[2023-08-06] MEDS ORDERED: ONDANSETRON 4 MG TAB PO PRN (10:30)
[2023-08-06] MEDS: GABAPENTIN 400 MG CAP PO SCH ×2 (10:44→20:26)
[2023-08-06] MEDS: HYDROcodone/APAP 7.5-325MG 1 EACH TAB PO SCH ×2 (10:45→20:21)
[2023-08-06] MEDS ORDERED: CALCIUM CARBONATE 500 MG CHEWABLE PO SCH (10:50)
[2023-08-06] MEDS ORDERED: PANTOPRAZOLE 40 MG TABLET PO SCH (11:00)
[2023-08-06 11:41] VITALS: PULSE 69
[2023-08-06 16:54] LABS: HCT 32.3 % (34.0-46.0); MCH 31.2 pg (25.0-35.0); MCV 91.7 fL (80.0-100.0); Mean Platelet Volume 9.6; Platelet Count 188 k/uL (150-450); RBC 3.52 m/uL (3.80-5.40); RDW 15.1 % (11.5-15.5); WBC 2.8 k/uL (3.8-10.6)
[2023-08-06 17:05] LABS: African American GFR (CKD) >90 (>60 ml/min/1.73 sqM); Anion Gap 5 mmol/L; Blood Urea Nitrogen 6 mg/dL (7-17); Carbon Dioxide 24 mmol/L (22-30); Chloride 107 mmol/L (98-107); Glucose 106 mg/dL (74-99); Non-African American GFR(CKD) >90 (>60 ml/min/1.73 sqM); Sodium 136 mmol/L (137-145)
[2023-08-06] MEDS ORDERED: ACETAMINOPHEN TAB 325 MG TAB PO PRN (19:06)
[2023-08-06] MEDS ORDERED: NICOTINE GUM (POLACRILEX) 2 MG GUM BUCCAL STA (21:27)
[2023-08-06 22:18] VITALS: BP 132/74; TEMP 98.2
== END 2023-08-06 22:04 ==
LOC: EC 16:53
DX: F32.A Depression, unspecified (principal); J45.909 Unspecified asthma, uncomplicated; K21.9 Gastro-esophageal reflux disease without esophagitis; G47.30 Sleep apnea, unspecified; Z79.899 Other long term (current) drug therapy; Z91.048 Other nonmedicinal substance allergy status; Z91.040 Latex allergy status
CPT/HCPCS: 82075; 36415; 80048; 85027; 81003; 81025; 80306; 99285; 96374; Q0138

== ENCOUNTER → 2023-08-14 | Outpatient (CLI) | payer BC, OTHER ==
--- NOTE | 2023-08-14 15:56 | P.BASOAP ---
Subjective Progress Note Date: 08/14/23 Principal diagnosis: Morbid obesity Patient returns for recheck. Last seen in October. Doing fairly well from a bariatric standpoint. GERD is controlled with antiacids. No nausea or vomiting. He lost an additional 12 pounds. BMI currently 23. Unfortunate she has had increased stress at home and at work and was having some suicidal ideations requiring admission 1-2 weeks ago. Doing better now. Different medications for her psychiatric issues were started. Objective - Vital Signs Vital signs: Vital Signs Temp 98.2 F 08/14/23 15:44 Pulse 72 08/14/23 15:44 Resp BP 117/75 08/14/23 15:44 Pulse Ox FiO2 Intake & Output 08/13/23 08/14/23 08/14/23 18:59 06:59 18:59 Weight 71.668 kg - Exam Abdomen: Soft, nontender, nondistended Assessment/Plan (1) Morbid obesity with BMI of 45.0-49.9, adult Narrative/Plan: 37-year-old female doing well after previously gastrectomy. Continue exercise and dietary regimen. We'll order 2 year annual lab work to be drawn at the time that she sees her next clinician requiring labs. Continue antiacids. Recheck 6 months. Plan: Date: 08/14/23 Initial Weight: 128.367 kg Initial BMI: 41.8 Current Weight: 71.668 kg Current BMI: 23.3 Type of Surgery: Total Volume in Band: Previous Volume: Volume Removed: Volume Added: Band Size:
[2023-08-14 16:00] VITALS: BP 117/75; PULSE 72; TEMP 98.2; BMI 23.3
== END ==
LOC: BARWHC3 15:36
PROVIDERS: ATTEND Surgery
DX: E66.01 Morbid (severe) obesity due to excess calories (principal); K21.9 Gastro-esophageal reflux disease without esophagitis; F17.200 Nicotine dependence, unspecified, uncomplicated; Z98.84 Bariatric surgery status; Z71.3 Dietary counseling and surveillance; Z68.23 Body mass index [BMI] 23.0-23.9, adult; Z91.040 Latex allergy status; Z91.018 Allergy to other foods
CPT/HCPCS: 99211

== ENCOUNTER → 2024-03-04 | Outpatient (CLI) | payer BC ==
[2024-03-04 15:49] VITALS: BP 143/84; PULSE 83; TEMP 98.2; BMI 22.4
--- NOTE | 2024-03-04 16:28 | P.BASOAP ---
Subjective Progress Note Date: 03/04/24 Principal diagnosis: Morbid obesity Patient returns for evaluation. Last seen 6 months ago. Her stress level unfortunately has persisted. Depression seems improved. When her labs were checked last time some of her vitamin levels were not obtained. Her hemoglobin did improve up to 11 from 9. Patient says recently she started feeling weak again and her iron was low. She had an iron infusion last week. States that she is able to eat meat however her overall appetite is diminished. States that she does not have a desire to eat often and is using marijuana both for relief of anxiety and for decreased appetite. Still having heavy menstrual flow. Says that she has not been following up with her pug mill operator helper because they want to proceed with hysterectomy. Patient thought that that might send her into menopause. No heartburn. Still having back pain. Complaining of hair loss. Taking protein shakes daily. Unsure how much calories she is eating. For lunch today however she was able to eat half of a large cheeseburger. Objective - Vital Signs Vital signs: Vital Signs Temp 98.2 F 03/04/24 15:25 Pulse 83 03/04/24 15:25 Resp BP 143/84 03/04/24 15:25 Pulse Ox FiO2 Intake & Output 03/03/24 03/04/24 03/04/24 18:59 06:59 18:59 Weight 68.946 kg - Exam Abdomen: Soft, nontender, nondistended Assessment/Plan (1) Morbid obesity with BMI of 45.0-49.9, adult Narrative/Plan: 38-year-old female with ongoing weight loss. Unfortunately having issues with decreased energy, iron deficiency, and anxiety. Continue as needed antiacids. Recommend follow-up with gynecology to discuss further the options of possible hysterectomy given her heavy menstrual flow. Recommend evaluation by dietitian who is not here today but will be contacting her. Will check routine postop bariatric labs. Follow-up 6 months. Plan: Date: 03/04/24 Initial Weight: 128.367 kg Initial BMI: 41.8 Current Weight: 68.946 kg Current BMI: 22.4 Type of Surgery: Total Volume in Band: Previous Volume: Volume Removed: Volume Added: Band Size:
== END ==
LOC: BARWHC3 15:16
PROVIDERS: ATTEND Surgery
DX: E66.01 Morbid (severe) obesity due to excess calories (principal); F32.A Depression, unspecified; F41.9 Anxiety disorder, unspecified; M54.9 Dorsalgia, unspecified; M54.50 Low back pain, unspecified; F17.200 Nicotine dependence, unspecified, uncomplicated; Z68.42 Body mass index [BMI] 45.0-49.9, adult; Z91.040 Latex allergy status; Z91.018 Allergy to other foods; Z68.22 Body mass index [BMI] 22.0-22.9, adult
CPT/HCPCS: 99211